=== PATIENT | female | born 1945 | race Caucasian/White ===

== ENCOUNTER → 2018-05-16 12:38 | Outpatient (CLI) | payer MEDICARE, OTHER, SELFPAY | PROVIDERS: PCP Family Medicine; Visit Provider Family Medicine | DX: M81.0 Age-related osteoporosis without current pathological fracture (principal); Z78.0 Asymptomatic menopausal state; Z87.891 Personal history of nicotine dependence; Z82.62 Family history of osteoporosis | CPT/HCPCS: 77080 ==

== ENCOUNTER → 2018-05-23 08:30 | Outpatient (CLI) | payer MEDICARE, OTHER, SELFPAY ==
[2018-05-23 09:43] LABS: Add Manual Diff / Slide Review NO; Basophils Percent Auto 1.1 % (0-2); Eosinophils Percent Auto 2.1 % (2-4); Hemoglobin 14.5 g/dL (12.0-16.0); Lymphocytes Percent Auto 30.3 % (25-40); Mean Corpuscular HGB Conc 33.6 % (30-36); Mean Corpuscular Hemoglobin 32.5 PG (26-34); Mean Corpuscular Volume 96.5 fL (80-100); Monocytes Percent Auto 6.7 % (3-14); Neutrophils Absolute Auto 3200 /uL (3000-5900); Neutrophils Percent Auto 59.8 % (50-75); Platelet Count 258 X10^3/uL (150-400); Red Blood Cell Count 4.45 X10^6/uL (4.0-5.2); Red Cell Distribution Width 12.8 % (11.6-14.8); White Blood Cell Count 5.4 X10^3/uL (4.5-11.0)
[2018-05-23 10:11] LABS: Erythrocyte Sedimentation Rate 11 MM/HR (0-20)
[2018-05-23 10:17] LABS: Uric Acid 4.1 mg/dL (2.5-6.2)
[2018-05-23 10:39] LABS: Rheumatoid Factor < 8.6 IU/mL (<12.0)
[2018-05-29 17:29] LABS: ANA Screen NEGATIVE (Negative); DNA Antibody Crithidia IFA NEGATIVE (Negative); Rheumatoid Factor <14 IU/mL; Sjogren Antiboday SS-A <1.0 NEG AI (<1.0 NEGATIVE); Sjogren Antiboday SS-B <1.0 NEG AI (<1.0 NEGATIVE); Sm Antibody <1.0 NEG AI (<1.0 NEGATIVE); Sm/RNP Antibody <1.0 NEG AI (<1.0 NEGATIVE)
== END ==
PROVIDERS: PCP Family Medicine; Visit Provider Family Medicine
DX: M19.90 Unspecified osteoarthritis, unspecified site (principal); M85.80 Other specified disorders of bone density and structure, unspecified site
CPT/HCPCS: 36415; 84550; 85025; 85651; 86038; 86430

== ENCOUNTER → 2019-02-17 09:31 | Outpatient (CLI) | payer MEDICARE, OTHER, SELFPAY ==
[2019-02-17 11:29] LABS: Alanine Aminotransferase 27 IU/L (9-52); Albumin 4.7 g/dL (3.5-5.0); Albumin Globulin Ratio 1.5 (1.0-2.8); Alkaline Phosphatase 70 U/L (38-126); Aspartate Aminotransferase 31 IU/L (14-36); Bilirubin Total 0.6 mg/dL (0.2-1.3); Blood Urea Nitrogen 18 mg/dL (7-17); Calcium 9.5 mg/dL (8.4-10.2); Carbon Dioxide 27 mmol/L (22-32); Chloride 103 mmol/L (98-107); Estimated Glomerular Filt Rate > 60.0 mL/min (>60); Globulin 3.2 g/dL (1.7-4.1); Glucose 102 mg/dL (80-110); HEMOLYSIS < 15 (0-50); Potassium 4.7 mmol/L (3.4-5.1); Sodium 140 mmol/L (137-145); Total Protein 7.9 g/dL (6.3-8.2)
[2019-02-17 11:46] LABS: Rheumatoid Factor < 8.6 IU/mL (<12.0)
[2019-02-17 12:01] LABS: TSH w/ Reflex to FT4 2.48 uIU/mL (0.47-4.68)
== END ==
PROVIDERS: PCP Family Medicine; Visit Provider Student in an Organized Health Care Education/Training Program
DX: M81.0 Age-related osteoporosis without current pathological fracture (principal); E55.9 Vitamin D deficiency, unspecified; M25.449 Effusion, unspecified hand; Z13.29 Encounter for screening for other suspected endocrine disorder
CPT/HCPCS: 36415; 80053; 82306; 84443; 86430

== ENCOUNTER → 2019-03-13 09:42 | Outpatient (CLI) | payer MEDICARE, OTHER, SELFPAY | PROVIDERS: PCP Family Medicine; Visit Provider Student in an Organized Health Care Education/Training Program | DX: M81.0 Age-related osteoporosis without current pathological fracture (principal) | CPT/HCPCS: 36415; 82310 ==

== ENCOUNTER → 2019-06-01 10:21 | Outpatient (CLI) | payer MEDICARE, OTHER, SELFPAY ==
[2019-06-01 11:05] LABS: Add Manual Diff / Slide Review NO; Basophils Absolute Auto 0 /uL (0-100); Basophils Percent Auto 1.1 % (0-2); Eosinophils Absolute Auto 100 /uL (0-450); Eosinophils Percent Auto 2.3 % (2-4); Hematocrit 43.6 % (36-46); Hemoglobin 15.2 g/dL (12.0-16.0); Lymphocytes Absolute Auto 1000 /uL (1100-4500); Lymphocytes Percent Auto 24.8 % (25-40); Mean Corpuscular HGB Conc 34.8 % (30-36); Mean Corpuscular Hemoglobin 33.1 PG (26-34); Mean Corpuscular Volume 94.9 fL (80-100); Monocytes Absolute Auto 300 /uL (0-900); Monocytes Percent Auto 7.4 % (3-14); Neutrophils Absolute Auto 2600 /uL (1500-7000); Neutrophils Percent Auto 64.4 % (50-75); Platelet Count 263 X10^3/uL (150-400); Red Cell Distribution Width 12.8 % (11.6-14.8); White Blood Cell Count 4.1 X10^3/uL (4.5-11.0)
[2019-06-01 11:18] LABS: Appearance Urine UA CLEAR; Bilirubin Urine UA NEGATIVE (NEGATIVE); Color Urine UA YELLOW; Glucose Urine UA NEGATIVE (Negative); Ketones Urine UA NEGATIVE (NEGATIVE); Leukocyte Esterase Urine UA NEGATIVE (NEGATIVE); Nitrite Urine UA NEGATIVE (Negative); Occult Blood Urine UA NEGATIVE (Negative); Protein Urine UA NEGATIVE (Negative); Urobilinogen Urine UA 0.2 E.U./dL (0.2); pH Urine UA 6.5 (4.5-8.0)
[2019-06-01 11:43] LABS: Alanine Aminotransferase 30 IU/L (9-52); Albumin 4.7 g/dL (3.5-5.0); Albumin Globulin Ratio 1.6 (1.0-2.8); Alkaline Phosphatase 54 U/L (38-126); Aspartate Aminotransferase 30 IU/L (14-36); BUN Creatinine Ratio 23.3 (6-22); Bilirubin Total 0.7 mg/dL (0.2-1.3); Blood Urea Nitrogen 21 mg/dL (7-17); Calcium 9.4 mg/dL (8.4-10.2); Carbon Dioxide 24 mmol/L (22-32); Chloride 106 mmol/L (98-107); Cholesterol 181 mg/dL (140-199); Estimated Glomerular Filt Rate > 60.0 mL/min (>60); Glucose 103 mg/dL (80-110); HDL Cholesterol 66 mg/dL (40-60); HEMOLYSIS < 15 (0-50); LDL Cholesterol Calculated 100 mg/dL (<100); Potassium 4.1 mmol/L (3.4-5.1); Sodium 141 mmol/L (137-145); Total Protein 7.7 g/dL (6.3-8.2); Triglycerides 74 mg/dL (35-150)
[2019-06-01 12:04] LABS: Thyroid Stimulating Hormone 2.66 uIU/mL (0.47-4.68)
== END ==
PROVIDERS: PCP Family Medicine; Visit Provider Family Medicine
DX: K21.9 Gastro-esophageal reflux disease without esophagitis (principal); Z51.81 Encounter for therapeutic drug level monitoring
CPT/HCPCS: 36415; 80053; 80061; 81003; 84443; 85025

== ENCOUNTER → 2019-08-17 08:08 | Outpatient (CLI) | payer MEDICARE, OTHER, SELFPAY ==
[2019-08-17 09:37] LABS: Add Manual Diff / Slide Review NO; Basophils Absolute Auto 0 /uL (0-100); Basophils Percent Auto 1.2 % (0-2); Eosinophils Absolute Auto 100 /uL (0-450); Eosinophils Percent Auto 2.7 % (2-4); Hematocrit 44.1 % (36-46); Hemoglobin 14.9 g/dL (12.0-16.0); Lymphocytes Absolute Auto 1400 /uL (1100-4500); Lymphocytes Percent Auto 34.8 % (25-40); Mean Corpuscular HGB Conc 33.7 % (30-36); Mean Corpuscular Hemoglobin 32.9 PG (26-34); Mean Corpuscular Volume 97.5 fL (80-100); Monocytes Absolute Auto 300 /uL (0-900); Monocytes Percent Auto 7.6 % (3-14); Neutrophils Absolute Auto 2100 /uL (1500-7000); Neutrophils Percent Auto 53.7 % (50-75); Platelet Count 258 X10^3/uL (150-400); Red Blood Cell Count 4.53 X10^6/uL (4.0-5.2); Red Cell Distribution Width 13.8 % (11.6-14.8)
[2019-08-17 09:47] LABS: Alanine Aminotransferase 21 IU/L (9-52); Albumin 4.2 g/dL (3.5-5.0); Albumin Globulin Ratio 1.3 (1.0-2.8); Alkaline Phosphatase 50 U/L (38-126); Aspartate Aminotransferase 34 IU/L (14-36); BUN Creatinine Ratio 22.5 (6-22); Bilirubin Total 0.6 mg/dL (0.2-1.3); Blood Urea Nitrogen 18 mg/dL (7-17); Calcium 9.4 mg/dL (8.4-10.2); Carbon Dioxide 30 mmol/L (22-32); Chloride 103 mmol/L (98-107); Cholesterol 190 mg/dL (140-199); Estimated Glomerular Filt Rate > 60.0 mL/min (>60); Globulin 3.3 g/dL (1.7-4.1); Glucose 101 mg/dL (80-110); HDL Cholesterol 57 mg/dL (40-60); HEMOLYSIS < 15 (0-50); LDL Cholesterol Calculated 114 mg/dL (<100); Potassium 4.5 mmol/L (3.4-5.1); Sodium 140 mmol/L (137-145); Total Protein 7.5 g/dL (6.3-8.2); Triglycerides 95 mg/dL (35-150)
[2019-08-17 10:03] LABS: Vitamin D 25 Hydroxy (D3) 61.4 ng/mL (30.0-100.0)
[2019-08-17 10:43] LABS: Thyroid Stimulating Hormone 2.82 uIU/mL (0.47-4.68)
[2019-08-17 11:12] LABS: Appearance Urine UA CLEAR; Bilirubin Urine UA NEGATIVE (NEGATIVE); Color Urine UA YELLOW; Glucose Urine UA NEGATIVE (Negative); Ketones Urine UA NEGATIVE (NEGATIVE); Leukocyte Esterase Urine UA NEGATIVE (NEGATIVE); Nitrite Urine UA NEGATIVE (Negative); Occult Blood Urine UA NEGATIVE (Negative); Protein Urine UA NEGATIVE (Negative); Urobilinogen Urine UA 0.2 E.U./dL (0.2)
== END ==
PROVIDERS: Family Provider Family Medicine; PCP Family Medicine; Visit Provider Student in an Organized Health Care Education/Training Program
DX: M81.0 Age-related osteoporosis without current pathological fracture (principal); E78.5 Hyperlipidemia, unspecified; K21.9 Gastro-esophageal reflux disease without esophagitis; Z51.81 Encounter for therapeutic drug level monitoring
CPT/HCPCS: 36415; 80053; 80061; 81003; 82306; 84443; 85025

== ENCOUNTER → 2019-09-22 08:50 | Outpatient (CLI) | payer MEDICARE, OTHER, SELFPAY ==
[2019-09-22 10:12] LABS: Calcium 9.5 mg/dL (8.4-10.2)
== END ==
PROVIDERS: PCP Family Medicine; Visit Provider Student in an Organized Health Care Education/Training Program
DX: M81.0 Age-related osteoporosis without current pathological fracture (principal)
CPT/HCPCS: 36415; 82310

== ENCOUNTER → 2019-10-26 15:11 | Outpatient (CLI) | payer MEDICARE, OTHER, SELFPAY ==
--- NOTE | 2019-10-26 15:13 | DI.MG.S_ITS ---
BILATERAL DIGITAL SCREENING MAMMOGRAM 3D/2D WITH CAD: 10/26/2019 CLINICAL: Routine screening. Comparison is made to exams dated: 03/27/2018 mammogram, 10/30/2016 mammogram, 10/03/2015 mammogram, 09/01/2014 mammogram, and 04/23/2013 mammogram - [facility]. There are scattered fibroglandular elements in both breasts. Current study was also evaluated with a Computer Aided Detection (CAD) system. No significant masses, calcifications, or other findings are seen in either breast. There has been no significant interval change. IMPRESSION: NEGATIVE There is no mammographic evidence of malignancy. A 1 year screening mammogram is recommended. This exam was interpreted at Station ID: [id number]. NOTE: For mammograms, a report in lay terms will be sent to the patient. Approximately 15% of breast malignancies will not be visualized mammographically. In the management of a palpable breast mass, a negative mammogram must not discourage biopsy of a clinically suspicious lesion. Electronically Signed By: Armen naylor/polina:10/26/2019 16:32:55 copy to: Ana Wallis letter sent: Normal Exam ACR BI-RADS Category 1: Negative [id number]
== END ==
PROVIDERS: PCP Family Medicine; Visit Provider Family Medicine
DX: Z12.31 Encounter for screening mammogram for malignant neoplasm of breast (principal)
CPT/HCPCS: 77063; 77067

== ENCOUNTER 2019-12-03 13:48 | Emergency (ER) | payer MEDICARE, OTHER, SELFPAY ==
[2019-12-03 13:49] VITALS: BP 140/75; PULSE 84; RESP 15; TEMP 36.1; O2SAT 96; BMI 26.9
--- NOTE | 2019-12-03 14:27 | DI.RAD.S_ITS ---
PROCEDURE: XR ACUTE ABDOMEN SERIES INDICATIONS: constipated,bloating TECHNIQUE: One view chest and two views of the abdomen were acquired. COMPARISON: [facility], CT, ABDOMEN WITH CONTRAST, 12/10/2017, 10:42. FINDINGS: Surgical changes and devices: Clips within the right upper quadrant are suggestive of a previous cholecystectomy. Chest: Lungs are clear. Heart size is normal. No pleural effusions. No pneumoperitoneum. Abdomen: A few borderline distended air-filled small bowel loops within the upper abdomen are identified, particularly seen within the left upper quadrant but did not measure the greater than 3 cm in diameter. A few scattered air-fluid levels are present. Moderate residual stool seen within the proximal colon. No suspicious calcifications. Visualized solid organ contours appear normal. Bones: No suspicious bony lesions. IMPRESSION: 1. Probable small bowel ileus. If the patient's symptoms persist, please consider an abdominal and pelvic CT with oral and intravenous contrast to exclude the possibility of a developing small bowel obstruction. 2. Possible constipation. 3. No acute cardiopulmonary process. Dictated by: Frank Martínez M.D. on 12/03/2019 at 14:17 Approved by: Frank Martínez M.D. on 12/03/2019 at 14:18
--- NOTE | 2019-12-03 15:49 | ED_ITS ---
HPI - Abdominal Pain <Yas Peña PA-C - Last Filed: 12/03/19 19:28> General Chief Complaint: Abdominal Pain Stated Complaint: constipation,bloated Time Seen by Provider: 12/03/19 15:41 Source: patient Mode of arrival: Ambulatory Limitations: no limitations History of Present Illness HPI narrative: This 73-year-old female comes to ED secondary to 3 day history of progressive abdominal pain with bloating and gas. She states that she has a history of reflux, had some heartburn Silva morning which resolved with Pepto- Bismol. Silva night however she started to feel bloated with a lot of bowel gas. She states there is some constant pain in her lower abdomen throughout that she can also feel in her back at times, especially when gas moves, then pain increases. She has not had any localized pain. Last normal bowel movement was Saturday, none since then. She states that there don't seem to be exacerbating or alleviating features for pain aside from movement of the gas. She has not noted any change with food, had some yogurt today and ate yesterday. She denies any urinary symptoms. She denies any nausea or vomiting. She denies any fever, chills, or sweats. She denies any chest pain or dyspnea. She denies any new pain or swelling in her extremities or other symptoms on systems review except starting to get a cold sore. She has not had any recent surgery, immobility, or medication change. No history of bowel issues. Related Data Home Medications Medication Instructions Recorded Confirmed fluticasone propionate 50 1 spray NASAL DAILY PRN 06/09/18 12/03/19 mcg/actuation nasal spray,suspension denosumab 60 mg/mL subcutaneous 60 mg SUBCUT [id number] 06/01/19 12/03/19 syringe Calcium 500/ D 1000 1 tab PO DAILY 12/03/19 12/03/19 Women's Multivitamin 1 tab PO DAILY 12/03/19 12/03/19 cyclobenzaprine 10 mg PO TIDP PRN 12/03/19 12/03/19 gabapentin [Neurontin] 600 mg PO QAM 12/03/19 12/03/19 ibuprofen 200 mg PO Q6H PRN 12/03/19 12/03/19 Previous Rx's Medication Instructions Recorded pravastatin 40 mg tablet 40 mg PO BEDTIME #90 tab 06/09/19 ranitidine HCl 150 mg tablet 150 mg PO DAILY #90 tab 06/19/19 ciprofloxacin HCl 500 mg PO Q12H #20 tab 12/03/19 metronidazole [Flagyl] 500 mg PO Q8H #30 tab 12/03/19 Allergies Allergy/AdvReac Type Severity Reaction Status Date / Time alendronate sodium Allergy Unknown Verified 12/03/19 13:49 [From FOSAMAX] iodine [IODINE] Allergy Unknown Verified 12/03/19 13:49 Sulfa (Sulfonamide Allergy Unknown Verified 12/03/19 16:11 Antibiotics) Review of Systems <Yas Peña PA-C - Last Filed: 12/03/19 19:28> Review of Systems ROS Unobtainable: All systems reviewed & are unremarkable except as noted in HPI and below Patient History <Yas Peña PA-C - Last Filed: 12/03/19 19:28> Medical History Allergy (Chronic 1989) Hearing loss (Chronic 1958) Hyperlipidemia (Chronic ~2011) Low back pain (Chronic 2017) Renal cyst (Chronic Unknown) Rosacea (Chronic 2012) Sciatica (Chronic Unknown) Shoulder pain (Resolved 1987) Urinary incontinence (Chronic 2016) Surgical History Status post cholecystectomy Family History (Updated 01/23/18 @ 00:00 by Conversion Provider) Child Mental health problem Father Mental health problem Social History Smoking Status: Former smoker alcohol intake: never Smoking Status: Former smoker alcohol intake frequency: holidays/special occasions only Substance Use Type: does not use Exam <Yas Peña PA-C - Last Filed: 12/03/19 19:28> Narrative Exam Narrative: GENERAL APPEARANCE: Patient sitting comfortably, in no distress. HEENT: PERRL, EOMI, no scleral icterus, normal oropharynx NECK: Supple LUNGS: Clear to auscultation bilaterally. HEART: Rate and rhythm regular, normal S1 and S2, no S3 or S4. ABDOMEN: Soft, nondistended, bowel sounds present x 4 quadrants, slightly hypoactive, no masses palpable, no hepatosplenomegaly. Mild generalized lower quadrant tenderness without guarding or rebound, no CVAT EXTREMITIES: No edema, no cyanosis DERMATOLOGIC: No jaundice or exanthem NEUROLOGIC: Alert and oriented with normal speech and coordination Initial Vital Signs Initial Vital Signs: Vital Signs Temperature 96.9 F L 12/03/19 13:49 Pulse Rate 84 12/03/19 13:49 Respiratory Rate 15 12/03/19 13:49 Blood Pressure 140/75 12/03/19 13:49 Pulse Oximetry 96 12/03/19 13:49 <Ja Gleason DO - Last Filed: 12/03/19 19:29> Initial Vital Signs Initial Vital Signs: Vital Signs Temperature 96.9 F L 12/03/19 13:49 Pulse Rate 84 12/03/19 13:49 Respiratory Rate 15 12/03/19 13:49 Blood Pressure 140/75 12/03/19 13:49 Pulse Oximetry 96 12/03/19 13:49 Course <Yas Peña PA-C - Last Filed: 12/03/19 19:28> Course Additional Information: Reviewed findings with patient and she feels comfortable with outpatient treatment. She is afebrile, has not had any difficulty tolerating p.o.. She will start antibiotics, advised on treatment for constipation as well as need for follow-up with PCP and when better to discuss follow-up colonoscopy with surgery. She agrees to return if any acutely worsening symptoms. Reviewed findings with Dr. Moise who agrees with plan Orders Ordered: ED Orders 12/03/19 14:27 XR acute abdomen series Stat 12/03/19 16:06 CT abdomen pelvis w con Stat 12/03/19 16:20 Complete Blood Count AUTO DIFF Stat Comprehensive Metabolic Panel Stat Lipase Stat Discontinued Medications Diphenhydramine HCl (Benadryl) 50 mg IV NOW ONE Stop: 12/03/19 16:05 Last Admin: 12/03/19 16:37 Dose: 50 mg Documented by: TEREZA Sodium Chloride (Normal Saline 0.9%) 1,000 mls @ 1,000 mls/hr IV BOLUS ONE Stop: 12/03/19 17:03 Last Infusion: 12/03/19 17:45 Dose: 0 mls/hr Documented by: Admin: 12/03/19 16:37 Dose: 1,000 mls/hr Documented by: TEREZA Vital Signs Vital signs: Vital Signs - 8 hr 12/03/19 13:49 12/03/19 17:03 12/03/19 18:48 Temperature 96.9 F L Pulse Rate 84 72 77 Respiratory Rate 15 12 16 Blood Pressure 140/75 140/61 Blood Pressure [Left Arm] 117/64 Pulse Oximetry 96 98 <Ja Gleason DO - Last Filed: 12/03/19 19:29> Orders Ordered: ED Orders 12/03/19 14:27 XR acute abdomen series Stat 12/03/19 16:06 CT abdomen pelvis w con Stat 12/03/19 16:20 Complete Blood Count AUTO DIFF Stat Comprehensive Metabolic Panel Stat Lipase Stat Discontinued Medications Diphenhydramine HCl (Benadryl) 50 mg IV NOW ONE Stop: 12/03/19 16:05 Last Admin: 12/03/19 16:37 Dose: 50 mg Documented by: TEREZA Sodium Chloride (Normal Saline 0.9%) 1,000 mls @ 1,000 mls/hr IV BOLUS ONE Stop: 12/03/19 17:03 Last Infusion: 12/03/19 17:45 Dose: 0 mls/hr Documented by: Admin: 12/03/19 16:37 Dose: 1,000 mls/hr Documented by: TEREZA Vital Signs Vital signs: Vital Signs - 8 hr 12/03/19 13:49 12/03/19 17:03 12/03/19 18:48 Temperature 96.9 F L Pulse Rate 84 72 77 Respiratory Rate 15 12 16 Blood Pressure 140/75 140/61 Blood Pressure [Left Arm] 117/64 Pulse Oximetry 96 98 MDM - Abdominal Pain <Yas Peña PA-C - Last Filed: 12/03/19 19:28> Lab Data Result diagrams: 12/03/19 16:20 12/03/19 16:20 Labs: Lab Results 12/03/19 12/03/19 Range/Units 16:20 16:20 WBC 9.6 (4.5-11.0) X10^3/uL RBC 4.32 (4.0-5.2) X10^6/uL Hgb 14.4 (12.0-16.0) g/dL Hct 41.1 (36-46) % MCV 95.1 (80-100) fL MCH 33.3 (26-34) PG MCHC 35.1 (30-36) % RDW 12.4 (11.6-14.8) % Plt Count 242 (150-400) X10^3/uL Neut % (Auto) 80.8 H (50-75) % Lymph % (Auto) 11.7 L (25-40) % [place] % (Auto) 7.0 (3-14) % Eos % (Auto) 0.2 L (2-4) % Baso % (Auto) 0.3 (0-2) % Neut # (Auto) 7800 H (3699-5179) /uL Lymph # (Auto) 1100 (4587-9849) /uL [place] # (Auto) 700 (0-900) /uL Eos # (Auto) 0 (0-450) /uL Baso # (Auto) 0 (0-100) /uL Sodium 137 (137-145) mmol/L Potassium 3.8 (3.4-5.1) mmol/L Chloride 103 (98-107) mmol/L Carbon Dioxide 27 (22-32) mmol/L BUN 16 (7-17) mg/dL Creatinine 0.80 (0.52-1.04) mg/dL Estimated GFR > 60.0 (>60) mL/min BUN/Creatinine Ratio 20.0 (6-22) Glucose 98 (80-110) mg/dL Calcium 9.3 (8.4-10.2) mg/dL Total Bilirubin 0.7 (0.2-1.3) mg/dL AST 70 H (14-36) IU/L ALT 61 H (<35) IU/L Alkaline Phosphatase 80 (38-126) U/L Total Protein 7.5 (6.3-8.2) g/dL Albumin 4.5 (3.5-5.0) g/dL Globulin 3.0 (1.7-4.1) g/dL Albumin/Globulin Ratio 1.5 (1.0-2.8) Lipase 51 (23-300) U/L Point of care testing: Urine Dip Bedside Urine Glucose Negative Bedside Urine Bilirubin - Negative Bedside Urine Ketone +/- 5 Urine Specific Ages [place] 1.015 Bedside Urine Occult Blood - Negative Bedside Urine pH 7.0 Bedside Urine Protein - Negative Bedside Urine Urobilinogen - Negative Bedside Urine Nitrite - Negative Bedside Urine Leukocytes - Negative Esterase Imaging Data Abdominal x-ray: Radiologist's Impression: Chart Viewer Diagnostics DATE TYPE STATUS AUTHOR Hx 12/03/19 14:27 Frank Martínez 10/26/19 15:13 Call,Armen 03/27/18 00:00 MynorMiguel ÁngelRolandoChantel Apodaca, F1945 [facility] R12 160.02cm 68.946kg BMI: 26.9kg/m? Abdominal Pain Search Chart No Data to Display ONSET Today 13:49 Chantel Hsu F 1945 [place] [address] XRay Report Signed Patient: Chantel Hsu RMR#: [id number] : 1945cct:[id number] Age/Sex: 73 / FDate of Service: 12/03/19 Loc: ED Accession Number: [id number] Procedure: XR acute abdomen series Ordering Provider: Ja Gleason D.O. PROCEDURE: XR ACUTE ABDOMEN SERIES INDICATIONS: constipated,bloating TECHNIQUE: One view chest and two views of the abdomen were acquired. COMPARISON: [facility], CT, ABDOMEN WITH CONTRAST, 12/10/2017, 10:42. FINDINGS: Surgical changes and devices: Clips within the right upper quadrant are suggestive of a previous cholecystectomy. Chest: Lungs are clear. Heart size is normal. No pleural effusions. No pneumoperitoneum. Abdomen: A few borderline distended air-filled small bowel loops within the upper abdomen are identified, particularly seen within the left upper quadrant but did not measure the greater than 3 cm in diameter. A few scattered air-fluid levels are present. Moderate residual stool seen within the proximal colon. No suspicious calcifications. V isualized solid organ contours appear normal. Bones: No suspicious bony lesions. IMPRESSION: 1. Probable small bowel ileus. If the patient's symptoms persist, please consider an abdominal and pelvic CT with oral and intravenous contrast to exclude the possibility of a developing small bowel obstruction. 2. Possible constipation. 3. No acute cardiopulmonary process. Dictated by: Frank Martínez M.D. on 12/03/2019 at 14:17 Approved by: Frank Martínez M.D. on 12/03/2019 at 14:18 <Ja Gleason, DO - Last Filed: 12/03/19 19:29> Lab Data Labs: Lab Results 12/03/19 12/03/19 Range/Units 16:20 16:20 WBC 9.6 (4.5-11.0) X10^3/uL RBC 4.32 (4.0-5.2) X10^6/uL Hgb 14.4 (12.0-16.0) g/dL Hct 41.1 (36-46) % MCV 95.1 (80-100) fL MCH 33.3 (26-34) PG MCHC 35.1 (30-36) % RDW 12.4 (11.6-14.8) % Plt Count 242 (150-400) X10^3/uL Neut % (Auto) 80.8 H (50-75) % Lymph % (Auto) 11.7 L (25-40) % [place] % (Auto) 7.0 (3-14) % Eos % (Auto) 0.2 L (2-4) % Baso % (Auto) 0.3 (0-2) % Neut # (Auto) 7800 H (1844-8184) /uL Lymph # (Auto) 1100 (2759-5503) /uL [place] # (Auto) 700 (0-900) /uL Eos # (Auto) 0 (0-450) /uL Baso # (Auto) 0 (0-100) /uL Sodium 137 (137-145) mmol/L Potassium 3.8 (3.4-5.1) mmol/L Chloride 103 (98-107) mmol/L Carbon Dioxide 27 (22-32) mmol/L BUN 16 (7-17) mg/dL Creatinine 0.80 (0.52-1.04) mg/dL Estimated GFR > 60.0 (>60) mL/min BUN/Creatinine Ratio 20.0 (6-22) Glucose 98 (80-110) mg/dL Calcium 9.3 (8.4-10.2) mg/dL Total Bilirubin 0.7 (0.2-1.3) mg/dL AST 70 H (14-36) IU/L ALT 61 H (<35) IU/L Alkaline Phosphatase 80 (38-126) U/L Total Protein 7.5 (6.3-8.2) g/dL Albumin 4.5 (3.5-5.0) g/dL Globulin 3.0 (1.7-4.1) g/dL Albumin/Globulin Ratio 1.5 (1.0-2.8) Lipase 51 (23-300) U/L Point of care testing: Urine Dip Bedside Urine Glucose Negative Bedside Urine Bilirubin - Negative Bedside Urine Ketone +/- 5 Urine Specific Ages [place] 1.015 Bedside Urine Occult Blood - Negative Bedside Urine pH 7.0 Bedside Urine Protein - Negative Bedside Urine Urobilinogen - Negative Bedside Urine Nitrite - Negative Bedside Urine Leukocytes - Negative Esterase Discharge Plan Departure Patient Disposition: Home Clinical Impression: Diverticulitis Constipation Qualifiers: Constipation type: other constipation type Qualified Code(s): K59.09 - Other constipation Discharge Date/Time: 12/03/19 18:48 Instructions: DI for Diverticulitis, DI for Constipation Activity Restrictions/Additional Instructions: Please start the antibiotics when you pick them up tonight. Please avoid using any alcohol products at all while you are on the metronidazole. Use ibuprofen every 8 hours for pain as well as Tylenol as needed. Drink plenty of clear flui ds for the next couple of days. You can have broth and Jell-O. If you are feeling better, you can try applesauce, white rice, white toast, plain baked potato without the skin, etcetera, and slowly advance your diet in a few days if you are feeling better. Please follow-up with your PCP for recheck in a few days (call tomorrow for appointment), and as we talked about, you should also see the local surgeons to discuss repeat colonoscopy when you are better. Please call their office as well tomorrow and let them know you were seen in the emergency room and advised to follow up there in a week o two. I have given you Dr. Storey's name since he is labor relations worker [facility] but you can see one of the other surgeons as well. For the constipation, please mix 4-6 oz each of prune juice with a dose of Miralax and a dose of Mylanta (both over the counter). Take this daily as needed until resolved. You can add Senekot or Ducolax in addition to these as needed. As we talked about, you should return if you have any acutely worsening symptoms, i.e. worsening pain, new fever, vomiting, etcetera as in that case you may need further testing and treatment in the hospital. Prescriptions: New ciprofloxacin HCl 500 mg tablet 500 mg PO Q12H Qty: 20 RF: 0 metronidazole [Flagyl] 500 mg tablet 500 mg PO Q8H Qty: 30 RF: 0 No Action fluticasone propionate [Flonase Allergy Relief] 50 mcg/actuation spray,suspension 1 spray NASAL DAILY PRN (Reason: Allergy Symptoms) RF: 0 pravastatin 40 mg tablet 40 mg PO BEDTIME Qty: 90 RF: 3 Prolia 60 mg/mL syringe 60 mg SUBCUT [id number] RF: 0 ranitidine HCl 150 mg tablet 150 mg PO DAILY Qty: 90 RF: 3 cyclobenzaprine 10 MG tablet 10 mg PO TIDP PRN (Reason: Spasms) RF: 0 gabapentin [Neurontin] 300 mg capsule 600 mg PO QAM RF: 0 ibuprofen 200 mg Tablet 200 mg PO Q6H PRN (Reason: pain) RF: 0 Calcium 500/ D 1000 1 tab PO DAILY RF: 0 Women's Multivitamin 1 tab PO DAILY RF: 0 Referrals: Roman Storey MD [Physician] - Ana Wallis DO [Primary Care Provider] -
--- NOTE | 2019-12-03 16:06 | DI.CT.S_ITS ---
PROCEDURE: CT ABDOMEN PELVIS W CON INDICATIONS: constipation, pain, possible ileus on XR TECHNIQUE: After the administration of intravenous contrast, 5 mm thick sections acquired from the diaphragm to the symphysis. 5 mm coronal and sagittal reformats were acquired. For radiation dose reduction, the following was used: automated exposure control, adjustment of mA and/or kV according to patient size. COMPARISON: [facility], CT, ABDOMEN WITH CONTRAST, 12/10/2017, 10:42. [facility], CT, KIDNEY/ URETER/BLADDER, 10/24/2010, 14:07. [facility], CR, XR ACUTE ABDOMEN SERIES, 12/03/2019, 14:23. FINDINGS: Image quality: Excellent. ABDOMEN: Lung bases: Lung bases are clear. Heart size is normal. Solid organs: Liver is normal in size and enhancement. Gallbladder is surgically absent. There is mild intrahepatic biliary dilation. Common bile duct is prominent measuring 9 mm.. Pancreas enhances normally. Spleen is normal in size and enhancement. No adrenal nodules. Kidneys demonstrate normal size and enhancement, without hydronephrosis. There are multiple simple appearing cyst in the left kidney; the largest one measures 5 cm in the superior pole. The slightly complex cyst is seen in the superior pole of the right kidney with wall nodularity and partial wall calcification measuring 1.5 cm. It is unchanged from 12/10/2017. Peritoneum and bowel: There are multiple colonic diverticula. There is short segment of thickening of the sigmoid colon adjacent to a diverticulum, suspicious for acute diverticulitis. A large amount of stool in colon. No free air. Trace amount of free fluid in pelvis. Nodes and vessels: No retroperitoneal or mesenteric adenopathy by size criteria. Aorta and inferior vena cava are normal in size. Miscellaneous: No ventral hernias. PELVIS: Genitourinary: Bladder wall thickness is normal. Uterus is normal. No adnexal mass or pathological free pelvic fluid. Miscellaneous: No inguinal hernias or adenopathy. Bones: No suspicious bony lesions. No vertebral body compression fractures. IMPRESSION: 1. Diverticulosis. There is short segmental thickening of sigmoid colon in association with a diverticulum, consistent with acute diverticulitis. A colonic mass could have a similar appearance. Recommend lower endoscopy for further evaluation after adequate treatment to exclude the possibility of a colonic mass. 2. A large amount of stool in colon. 3. Cholecystectomy. Mild intrahepatic and extrahepatic biliary dilation is most likely postsurgical. Please correlate with serum bilirubin. 4. A Bosniak category 2F cyst in the superior pole of the right kidney, unchanged compared to 12/10/2017. Dictated by: Vern Ryan M.D. on 12/03/2019 at 17:49 Approved by: Vern Ryan M.D. on 12/03/2019 at 18:05
[2019-12-03 16:25] LABS: Add Manual Diff / Slide Review NO; Basophils Absolute Auto 0 /uL (0-100); Basophils Percent Auto 0.3 % (0-2); Eosinophils Absolute Auto 0 /uL (0-450); Eosinophils Percent Auto 0.2 % (2-4); Hematocrit 41.1 % (36-46); Hemoglobin 14.4 g/dL (12.0-16.0); Lymphocytes Absolute Auto 1100 /uL (1100-4500); Lymphocytes Percent Auto 11.7 % (25-40); Mean Corpuscular HGB Conc 35.1 % (30-36); Mean Corpuscular Hemoglobin 33.3 PG (26-34); Mean Corpuscular Volume 95.1 fL (80-100); Monocytes Absolute Auto 700 /uL (0-900); Neutrophils Absolute Auto 7800 /uL (1500-7000); Neutrophils Percent Auto 80.8 % (50-75); Platelet Count 242 X10^3/uL (150-400); Red Blood Cell Count 4.32 X10^6/uL (4.0-5.2); Red Cell Distribution Width 12.4 % (11.6-14.8); White Blood Cell Count 9.6 X10^3/uL (4.5-11.0)
[2019-12-03] MEDS: diphenhydrAMINE 50 MG/ML VIAL IV (16:37)
[2019-12-03] MEDS: SODIUM CHLORIDE 0.9% 1,000 ML 1000 ML IV (16:37)
[2019-12-03 16:46] LABS: Alanine Aminotransferase 61 IU/L (<35); Albumin 4.5 g/dL (3.5-5.0); Albumin Globulin Ratio 1.5 (1.0-2.8); Alkaline Phosphatase 80 U/L (38-126); Aspartate Aminotransferase 70 IU/L (14-36); Bilirubin Total 0.7 mg/dL (0.2-1.3); Blood Urea Nitrogen 16 mg/dL (7-17); Calcium 9.3 mg/dL (8.4-10.2); Carbon Dioxide 27 mmol/L (22-32); Chloride 103 mmol/L (98-107); Estimated Glomerular Filt Rate > 60.0 mL/min (>60); Glucose 98 mg/dL (80-110); HEMOLYSIS < 15 (0-50); Lipase 51 U/L (23-300); Potassium 3.8 mmol/L (3.4-5.1); Sodium 137 mmol/L (137-145); Total Protein 7.5 g/dL (6.3-8.2)
[2019-12-03 17:03] VITALS: BP 117/64; PULSE 72; RESP 12; O2SAT 98
[2019-12-03 18:48] VITALS: BP 140/61; PULSE 77; RESP 16
== END 2019-12-03 18:48 | disposition home or self-care (01) ==
PROVIDERS: Emergency Provider Internal Medicine; PCP Family Medicine
DX: K57.92 Diverticulitis of intestine, part unspecified, without perforation or abscess without bleeding (principal); K59.09 Other constipation
CPT/HCPCS: 36415; 74022; 74177; 80053; 81003; 83690; 85025; 96361; 96374; 99284; J1200; Q9967

== ENCOUNTER → 2020-04-07 07:12 | Outpatient (CLI) | payer MEDICARE, OTHER, SELFPAY ==
[2020-04-07 08:07] LABS: Add Manual Diff / Slide Review NO; Basophils Absolute Auto 100 /uL (0-100); Basophils Percent Auto 1.2 % (0-2); Eosinophils Absolute Auto 200 /uL (0-450); Eosinophils Percent Auto 4.9 % (2-4); Hematocrit 42.4 % (36-46); Hemoglobin 14.4 g/dL (12.0-16.0); Lymphocytes Absolute Auto 1700 /uL (1100-4500); Lymphocytes Percent Auto 37.7 % (25-40); Mean Corpuscular Hemoglobin 32.9 PG (26-34); Mean Corpuscular Volume 96.6 fL (80-100); Monocytes Absolute Auto 400 /uL (0-900); Monocytes Percent Auto 8.5 % (3-14); Neutrophils Absolute Auto 2100 /uL (1500-7000); Neutrophils Percent Auto 47.7 % (50-75); Platelet Count 266 X10^3/uL (150-400); Red Blood Cell Count 4.39 X10^6/uL (4.0-5.2); Red Cell Distribution Width 12.8 % (11.6-14.8); White Blood Cell Count 4.5 X10^3/uL (4.5-11.0)
[2020-04-07 08:29] LABS: BUN Creatinine Ratio 24.7 (6-22); Blood Urea Nitrogen 20 mg/dL (7-17); Calcium 9.4 mg/dL (8.4-10.2); Carbon Dioxide 26 mmol/L (22-32); Chloride 105 mmol/L (98-107); Estimated Glomerular Filt Rate > 60.0 mL/min (>60); Glucose 104 mg/dL (80-110); HEMOLYSIS < 15 (0-50); Potassium 4.1 mmol/L (3.4-5.1); Sodium 139 mmol/L (137-145)
[2020-04-07 08:39] LABS: Cholesterol 179 mg/dL (140-199); HDL Cholesterol 66 mg/dL (40-60); LDL Cholesterol Calculated 99 mg/dL (<100); Triglycerides 72 mg/dL (35-150)
[2020-04-07 08:47] LABS: Vitamin D 25 Hydroxy (D3) 55.1 ng/mL (30.0-100.0)
[2020-04-07 09:00] LABS: Thyroid Stimulating Hormone 2.85 uIU/mL (0.47-4.68)
== END ==
PROVIDERS: Family Medicine; PCP Family Medicine; Referring Provider Student in an Organized Health Care Education/Training Program; Visit Provider Student in an Organized Health Care Education/Training Program
DX: E55.9 Vitamin D deficiency, unspecified (principal); M81.0 Age-related osteoporosis without current pathological fracture; E78.5 Hyperlipidemia, unspecified
CPT/HCPCS: 36415; 80048; 80061; 82306; 84443; 85025

== ENCOUNTER → 2020-05-24 15:14 | Outpatient (CLI) | payer MEDICARE, OTHER, SELFPAY | PROVIDERS: PCP Family Medicine; Visit Provider Student in an Organized Health Care Education/Training Program | DX: M85.851 Other specified disorders of bone density and structure, right thigh (principal); Z78.0 Asymptomatic menopausal state; Z82.62 Family history of osteoporosis | CPT/HCPCS: 77080 ==

== ENCOUNTER 2020-07-21 15:23 | Emergency (ER) | payer MEDICARE, OTHER, SELFPAY ==
[2020-07-21 15:29] VITALS: BP 168/84; PULSE 79; RESP 15; TEMP 36.7; O2SAT 99
--- NOTE | 2020-07-21 16:35 | ED_ITS ---
HPI - Wound/Laceration <Virgen Henley, [employer] - Last Filed: 07/21/20 18:35> General Chief Complaint: Wound/Laceration Stated Complaint: bee sting yesterday, right foot stung Time Seen by Provider: 07/21/20 15:49 Source: patient Mode of arrival: Ambulatory Limitations: no limitations History of Present Illness HPI narrative: The patient is a 74-year-old female former smoker with history of GERD who presents with a chief complaint of a bee sting yesterday. She states that her little toe on her right foot was started yesterday while she was out for walk. She notes that it was very painful. She took ibuprofen and Benadryl last night prior to bed. Today she has slight extending redness from the toe sting site, so she came to the emergency department. She denies any chest pain or shortness of breath. She denies any fevers nausea vomiting or diarrhea. She tried ice once. She does not know when her previous tetanus shot was. Related Data Home Medications Medication Instructions Recorded Confirmed fluticasone propionate 50 1 spray NASAL DAILY PRN 06/09/18 07/25/20 mcg/actuation nasal spray,suspension denosumab 60 mg/mL subcutaneous 60 mg SUBCUT [id number] 06/01/19 07/25/20 syringe Calcium 500/ D 1000 1 tab PO DAILY 12/03/19 07/25/20 Women's Multivitamin 1 tab PO DAILY 12/03/19 07/25/20 cyclobenzaprine 10 mg PO TIDP PRN 12/03/19 07/25/20 ibuprofen 200 mg PO Q6H PRN 12/03/19 07/25/20 famotidine 10 mg tablet 10 mg PO DAILY 05/09/20 07/25/20 psyllium husk 3.4 gram/5.4 gram 1 tbsp PO DAILY 05/09/20 07/25/20 oral powder Previous Rx's Medication Instructions Recorded gabapentin 300 mg capsule 600 mg PO QAM #180 cap 05/09/20 pravastatin 40 mg tablet 40 mg PO BEDTIME #90 tab 05/09/20 Allergies Allergy/AdvReac Type Severity Reaction Status Date / Time omeprazole Allergy Mild Itching in Verified 07/25/20 14:43 feet alendronate sodium Allergy Unknown Verified 07/25/20 14:43 [From FOSAMAX] iodine [IODINE] Allergy Unknown Verified 07/25/20 14:43 Sulfa (Sulfonamide Allergy Unknown Verified 07/25/20 14:43 Antibiotics) Review of Systems <MICHAEL Snowden - Last Filed: 07/21/20 18:35> Review of Systems Narrative: GENERAL: Denies chills, fatigue, malaise, fever, sweats. HEENT: Denies sinus pain, ear pain, sore throat, difficulty swallowing, dizziness. RESPIRATORY: Denies dyspnea, cough, wheezing, hemoptysis, sputum. CARDIOVASCULAR: Denies chest pain, palpitations, orthopnea, edema, GASTROINTESTINAL: Denies nausea, vomiting, abdominal pain, diarrhea, constipation, melena. : Denies dysuria, frequency, incontinence, hematuria, urinary retention. MUSCULOSKELETAL: denies weakness, joint pain, or bony pain SKIN: See HPI NEUROLOGIC: Denies weakness, headache, numbness, change in speech, confusion, seizures, incoordination. PSYCHIATRIC: No concerning psychosocial issues. 12 point review of systems is negative except for those stated above Patient History <MICHAEL Snowden - Last Filed: 07/21/20 18:35> Medical History Allergy (Chronic 1989) Hearing loss (Chronic 1958) Hyperlipidemia (Chronic ~2011) Low back pain (Chronic 2017) Renal cyst (Chronic Unknown) Rosacea (Chronic 2012) Sciatica (Chronic Unknown) Shoulder pain (Resolved 1987) Urinary incontinence (Chronic 2016) Surgical History Status post cholecystectomy Family History Child Mental health problem Father Mental health problem Social History Smoking Status: Former smoker Tobacco: How many years used: 10 alcohol intake: former substance use type: does not use Smoking Status: Former smoker alcohol intake frequency: holidays/special occasions only Substance Use Type: does not use Exam <MICHAEL Snowden - Last Filed: 07/21/20 18:35> Narrative Exam Narrative: GENERAL: This is a well-nourished, well-developed patient, in no acute distress HEAD: Atraumatic. Normocephalic. No temporal or scalp tenderness. EYES: Pupils equal round and reactive. Extraocular motions intact. No scleral icterus. No injection or drainage. ENT: Nose without bleeding, purulent drainage or septal hematoma. Wearing a mask. Airway patent. NECK: Trachea midline. No JVD or lymphadenopathy. Supple, nontender, no meningeal signs. CARDIOVASCULAR: Regular rate and rhythm RESPIRATORY: Clear to auscultation. Breath sounds equal bilaterally. No wheezes, rales, or rhonchi. No cough. No increased respiratory effort. No accessory muscle use. GASTROINTESTINAL: Abdomen soft, non-tender, nondistended. No hepato- splenomegaly, or palpable masses. No guarding. EXTREMITIES: Skin exam as noted. Right pedal pulses intact. Capillary refill less than 2 seconds all toes right foot. BACK: Nontender without deformity or crepitance. No flank tenderness. NEURO: AOx3. SKIN: Bee sting site noted on right 5th toe. Extending diffuse erythema approximately 2-3 cm, no drainage. Initial Vital Signs Initial Vital Signs: Vital Signs Temperature 98.1 F 07/21/20 15:29 Pulse Rate 79 07/21/20 15:29 Respiratory Rate 15 07/21/20 15:29 Blood Pressure 168/84 H 07/21/20 15:29 Pulse Oximetry 99 07/21/20 15:29 <Amie Rowe DO - Last Filed: 07/26/20 07:26> Initial Vital Signs Initial Vital Signs: Vital Signs Temperature 98.1 F 07/21/20 15:29 Pulse Rate 79 07/21/20 15:29 Respiratory Rate 15 07/21/20 15:29 Blood Pressure 168/84 H 07/21/20 15:29 Pulse Oximetry 99 07/21/20 15:29 Course <MICHAEL Snowden - Last Filed: 07/21/20 18:35> Orders Ordered: Discontinued Medications Diphtheria/Tetanus/Acell Pertussis (Adacel) 0.5 ml IM .ONCE ONE Stop: 07/21/20 16:30 Last Admin: 07/21/20 16:50 Dose: 0.5 ml Documented by: KRISTIN Vital Signs Vital signs: Vital Signs - 8 hr 07/21/20 15:29 07/21/20 17:14 Temperature 98.1 F Pulse Rate 79 65 Respiratory Rate 15 Blood Pressure 168/84 H 168/70 H Pulse Oximetry 99 100 <Amie Rowe DO - Last Filed: 07/26/20 07:26> Orders Ordered: Discontinued Medications Diphtheria/Tetanus/Acell Pertussis (Adacel) 0.5 ml IM .ONCE ONE Stop: 07/21/20 16:30 Last Admin: 07/21/20 16:50 Dose: 0.5 ml Documented by: KRISTIN Vital Signs Vital signs: Vital Signs - 8 hr 07/21/20 15:29 07/21/20 17:14 Temperature 98.1 F Pulse Rate 79 65 Respiratory Rate 15 Blood Pressure 168/84 H 168/70 H Pulse Oximetry 99 100 MDM - Wound/Laceration <ANIA Snowden-BC - Last Filed: 07/21/20 18:35> MDM Narrative Medical decision making narrative: The patient is a 74-year-old female who presents with a chief complaint of pain and swelling related to a bee sting yesterday. Exam indicates localized allergic reaction with no indications of anaphylaxis or further reaction. She has no shortness of breath or signs of systemic illness. Her tetanus is updated as she did not know when her previous tetanus was. She was placed in a burst of steroids with discussions about continuing Benadryl etcetera. We discussed monitoring for signs of fever, extending erythema that is well demarcated as that could indicate cellulitis. Encouraged follow-up with primary care provider in the next few days for re- evaluation. Discussed coming back to the ER for acute concerns such as difficulty breathing. Patient has no questions or concerns upon discharge and states understanding of return precautions as well as care Discharge Plan Departure Patient Disposition: Home Clinical Impression: Accidental bee sting Discharge Date/Time: 07/21/20 17:20 Instructions: How to Care for an Insect Bite or Sting, Insect Bites and Stings (Alternative Therapy), DI for Insect Bites and Stings Activity Restrictions/Additional Instructions: Thank you for trusting us with your care today As discussed, it appears that you have had a localized allergic reaction to your bee-sting. I sent a prescription of prednisone to [facility]. I suggest continued rest ice compression elevation as well as [id number] pain medications and antihistamines as needed and able Please monitor for any acute signs of an allergic reaction such as shortness of breath and come back to emergency department for any acute concerns Please follow-up with primary care provider in the next 48-72 hours. Please monitor for fevers, extending redness etcetera and coming back to the emergency department for any acute concerns Prescriptions: No Action fluticasone propionate [Flonase Allergy Relief] 50 mcg/actuation spray,suspension 1 spray NASAL DAILY PRN (Reason: Allergy Symptoms) RF: 0 Prolia 60 mg/mL syringe 60 mg SUBCUT [id number] RF: 0 famotidine 10 mg tablet 10 mg PO DAILY RF: 0 Metamucil 3.4 gram/5.4 gram powder 1 tbsp PO DAILY RF: 0 gabapentin [Neurontin] 300 mg capsule 600 mg PO QAM Qty: 180 RF: 3 pravastatin 40 mg tablet 40 mg PO BEDTIME Qty: 90 RF: 3 cyclobenzaprine 10 MG tablet 10 mg PO TIDP PRN (Reason: Spasms) RF: 0 ibuprofen 200 mg Tablet 200 mg PO Q6H PRN (Reason: pain) RF: 0 Calcium 500/ D 1000 1 tab PO DAILY RF: 0 Women's Multivitamin 1 tab PO DAILY RF: 0 Referrals: Charles Resendiz DO [Primary Care Provider] - <Amie Rowe DO - Last Filed: 07/26/20 07:26> Cosign ED Attending Costwilaature Attestation: I was immediately available in the dep artment for consultation. Documentation has been reviewed. I agree with assessment and plan.
--- NOTE | 2020-07-21 16:36 | PC.NURSE ---
Stung by a yellow hornet on 07/20/20, bottom of pinky toe. Toes are swollen/red. Swelling/redness extends up into top of foot. 2+ pitting edema
[2020-07-21] MEDS: TET,DIPH,PERTUSS(ACELL),VAC/PF 0.5 ML SYRINGE IM (16:50)
[2020-07-21 17:14] VITALS: BP 168/70; PULSE 65; O2SAT 100
== END 2020-07-21 17:20 | disposition home or self-care (01) ==
PROVIDERS: Emergency Provider Nurse Practitioner Family; PCP Family Medicine
DX: T63.441A Toxic effect of venom of bees, accidental (unintentional), initial encounter (principal); Z23 Encounter for immunization
CPT/HCPCS: 90471; 99283; 90715

== ENCOUNTER → 2020-07-25 15:36 | Outpatient (CLI) | payer MEDICARE, OTHER, SELFPAY | PROVIDERS: PCP Family Medicine; Visit Provider Registered Nurse | DX: T14.8XXA Other injury of unspecified body region, initial encounter (principal) | CPT/HCPCS: 87070; 87075; 87147; 87186; 87205 ==

== ENCOUNTER 2020-11-04 16:50 | Emergency (ER) | payer MEDICARE, OTHER, SELFPAY ==
[2020-11-04 16:55] VITALS: PULSE 106; O2SAT 97
[2020-11-04 16:56] VITALS: BP 189/87; PULSE 98; O2SAT 97
[2020-11-04 16:58] VITALS: BP 189/87; PULSE 99; RESP 18; TEMP 36.8; O2SAT 98
[2020-11-04 17:00] VITALS: BP 155/69; PULSE 83; O2SAT 99
--- NOTE | 2020-11-04 17:28 | ED_ITS ---
HPI - General Adult General Chief complaint: Shortness of Breath/Dyspnea Stated complaint: RIB CAGE PAIN SOB Time Seen by Provider: 11/04/20 17:04 Source: patient Mode of arrival: Family Vehicle Limitations: no limitations History of Present Illness HPI narrative: 74-year-old female here for evaluation of right-sided chest pain. She states that off and on for the past 6 days she has had pain on the right side of her chest. She states that it travels along the front of her chest and under her breast. It is worse when she takes a deep breath worse when she bends over and worse when she touches it. She had a pain under her breast and went to the chiropractor and had an adjustment and since then she now has pain that she came the emergency department for today. Has not tried anything for this pain. Related Data Home Medications Medication Instructions Recorded Confirmed fluticasone propionate 50 1 spray NASAL DAILY PRN 06/09/18 09/26/20 mcg/actuation nasal spray,suspension denosumab 60 mg/mL subcutaneous 60 mg SUBCUT [id number] 06/01/19 09/26/20 syringe Calcium 500/ D 1000 1 tab PO DAILY 12/03/19 09/26/20 Women's Multivitamin 1 tab PO DAILY 12/03/19 09/26/20 cyclobenzaprine 10 mg PO TIDP PRN 12/03/19 09/26/20 ibuprofen 200 mg PO Q6H PRN 12/03/19 09/26/20 famotidine 10 mg tablet 10 mg PO DAILY 05/09/20 09/26/20 psyllium husk 3.4 gram/5.4 gram 1 tbsp PO DAILY 05/09/20 09/26/20 oral powder Previous Rx's Medication Instructions Recorded gabapentin 300 mg capsule 600 mg PO QAM #180 cap 09/27/20 pravastatin 40 mg tablet 40 mg PO BEDTIME #90 tab 09/27/20 Allergies Allergy/AdvReac Type Severity Reaction Status Date / Time omeprazole Allergy Mild Itching in Verified 07/25/20 14:43 feet piroxicam Allergy Mild hives Verified 09/26/20 08:58 alendronate sodium Allergy Unknown Verified 07/25/20 14:43 [From FOSAMAX] iodine [IODINE] Allergy Unknown Verified 07/25/20 14:43 Sulfa (Sulfonamide Allergy Unknown Verified 07/25/20 14:43 Antibiotics) Review of Systems Constitutional Constitutional: Denies headache(s) ENT Ears, Nose, Mouth, and Throat: Denies headache(s) Cardiovascular Cardiovascular: Reports chest pain (Chest wall pain) Respiratory Comments: Pain with inspiration Gastrointestinal Gastrointestinal: Denies abdominal pain, Denies nausea and Denies vomiting Genitourinary Genitourinary: Denies dysuria Genitourinary: Denies dysuria Musculoskeletal Musculoskeletal: Denies arthralgias and Denies myalgias Integumentary/Breasts Skin/Breast: Denies lesions and Denies rash Neurologic Neurologic: Denies behavioral changes and Denies headache(s) Psychiatric Psychiatric: Denies behavioral changes Hematologic/Lymphatic Hematologic/Lymphatic: Denies easy bleeding and Denies easy bruising Allergic/Immunologic Allergic/Immunologic: Denies urticaria Patient History Medical History Allergy (1989) Hearing loss (1958) Hyperlipidemia (~2011) Low back pain (2016) Metatarsalgia Renal cyst (Unknown) Rosacea (2012) Sciatica (Unknown) Shoulder pain (1987) Urinary incontinence (2016) Surgical History Status post cholecystectomy Family History Child Mental health problem Father Mental health problem Social History Smoking Status: Former smoker Tobacco: How many years used: 10 alcohol intake: former substance use type: does not use Smoking Status: Former smoker alcohol intake frequency: 0-2 drinks per day Substance Use Type: does not use Exam Initial Vital Signs Initial Vital Signs: Vital Signs Pulse Rate 106 H 11/04/20 16:55 Pulse Oximetry 97 11/04/20 16:55 Const General: cooperative, comfortable and well developed Limitations: mental status not altered HENCA Head: normal to inspection and normocephalic Chest Chest: No crepitus and tenderness (Along the mid/lower ribs anteriorly on the right with palpation) Breast inspection: normal inspection of the breasts Resp Effort & Inspection: normal respiratory effort Auscultation: clear to auscultation bilaterally Back/Spine/Pelvis Back: No CVA tenderness Skin Lesions: no lesions Rashes: no rashes Neuro General: patient alert, patient awake and patient oriented x3 Cognition: normal cognition Speech: speech normal Extrem General: capillary refill normal Psych Appearance: grossly normal and well kempt Scores GCS Sandra coma scale eye opening: Spontaneous [place] coma scale verbal response: Orientated Sandra coma scale motor response: Obey commands [place] coma scale total score: 15 Course Vital Signs Vital signs: Vital Signs - 8 hr 11/04/20 16:55 11/04/20 16:56 11/04/20 16:58 Temperature 98.2 F Pulse Rate 106 H 98 H 99 H Respiratory Rate 18 Blood Pressure 189/87 H 189/87 H Pulse Oximetry 97 97 98 11/04/20 17:00 11/04/20 17:30 11/04/20 17:35 Temperature Pulse Rate 83 70 71 Respiratory Rate 18 Blood Pressure 155/69 H 143/66 H 143/46 H Pulse Oximetry 99 98 98 Medical Decision Making ECG Data Attestation: I personally reviewed and interpreted this ECG as follows: Prior ECG tracings: not available for review Interpretation: Sinus rhythm Ventricular rate 82 PVC Normal QRS Normal QTC No ST T wave changes MDM Narrative Medical decision making narrative: Patient does have tenderness to palpation along the right anterior chest wall. She states that this clearly reproduces the pain that brought her in today. There is no skin changes over the area. I have low suspicion for ACS. I suspect this is either an intercostal muscle strain versus costochondritis. Given the fact that it does radiate laterally I have would be more concerned for an intercostal muscle strain. I feel we can hold on further workup for now. Her lungs are clear. She was given return precautions. She expressed understanding and agreement. Discharge Plan Departure Patient Disposition: Home Clinical Impression: Acute chest wall pain Instructions: DI for Atypical Chest Pain Activity Restrictions/Additional Instructions: Recommend that you continue with the ibuprofen as needed for your discomfort. Contact your primary provider for a follow-up. Return to the emergency department for any new or worsening symptoms Prescriptions: No Action fluticasone propionate [Flonase Allergy Relief] 50 mcg/actuation spray,suspension 1 spray NASAL DAILY PRN (Reason: Allergy Symptoms) RF: 0 Prolia 60 mg/mL syringe 60 mg SUBCUT [id number] RF: 0 famotidine 10 mg tablet 10 mg PO DAILY RF: 0 Metamucil 3.4 gram/5.4 gram powder 1 tbsp PO DAILY RF: 0 pravastatin 40 mg tablet 40 mg PO BEDTIME Qty: 90 RF: 3 gabapentin [Neurontin] 300 mg capsule 600 mg PO QAM Qty: 180 RF: 3 cyclobenzaprine 10 MG tablet 10 mg PO TIDP PRN (Reason: Spasms) RF: 0 ibuprofen 200 mg Tablet 200 mg PO Q6H PRN (Reason: pain) RF: 0 Calcium 500/ D 1000 1 tab PO DAILY RF: 0 Women's Multivitamin 1 tab PO DAILY RF: 0 Referrals: Charles Resendiz DO [Primary Care Provider] -
[2020-11-04 17:30] VITALS: BP 143/66; PULSE 70; RESP 18; O2SAT 98
[2020-11-04 17:35] VITALS: BP 143/46; PULSE 71; O2SAT 98
== END 2020-11-04 17:39 | disposition home or self-care (01) ==
PROVIDERS: Emergency Provider Emergency Medicine; PCP Family Medicine
DX: R07.89 Other chest pain (principal); R06.02 Shortness of breath
CPT/HCPCS: 93005; 93010; 99281

== ENCOUNTER → 2021-03-15 07:21 | Outpatient (CLI) | payer MEDICARE, OTHER, SELFPAY ==
[2021-03-15 08:01] LABS: BUN Creatinine Ratio 22.8 (6-22); Blood Urea Nitrogen 18 mg/dL (7-17); Calcium 9.8 mg/dL (8.4-10.2); Carbon Dioxide 27 mmol/L (22-32); Chloride 106 mmol/L (98-107); Estimated Glomerular Filt Rate > 60.0 mL/min (>60); Glucose 107 mg/dL (80-110); HEMOLYSIS < 15 (0-50); Sodium 139 mmol/L (137-145)
== END ==
PROVIDERS: PCP Family Medicine; Referring Provider Student in an Organized Health Care Education/Training Program; Visit Provider Student in an Organized Health Care Education/Training Program
DX: M81.0 Age-related osteoporosis without current pathological fracture (principal)
CPT/HCPCS: 36415; 80048; 82306

== ENCOUNTER → 2021-04-03 10:24 | Outpatient (CLI) | payer MEDICARE, OTHER, SELFPAY ==
--- NOTE | 2021-04-03 | DI.MG.S_ITS ---
BILATERAL DIGITAL SCREENING MAMMOGRAM 3D/2D WITH CAD: 04/03/2021 CLINICAL: Routine screening. Comparison is made to exams dated: 10/26/2019 mammogram, 03/27/2018 mammogram, and 10/30/2016 mammogram - [facility]. There are scattered fibroglandular elements in both breasts. Current study was also evaluated with a Computer Aided Detection (CAD) system. No significant masses, calcifications, or other findings are seen in either breast. There has been no significant interval change. IMPRESSION: NEGATIVE There is no mammographic evidence of malignancy. A 1 year screening mammogram is recommended. This exam was interpreted at Station ID: [id number]. NOTE: For mammograms, a report in lay terms will be sent to the patient. Approximately 15% of breast malignancies will not be visualized mammographically. In the management of a palpable breast mass, a negative mammogram must not discourage biopsy of a clinically suspicious lesion. Electronically Signed By: Nash lockwood/polina:04/03/2021 11:35:10 letter sent: Normal Exam ACR BI-RADS Category 1: Negative [id number]
== END ==
PROVIDERS: PCP Family Medicine; Referring Provider Family Medicine; Visit Provider Family Medicine
DX: Z12.31 Encounter for screening mammogram for malignant neoplasm of breast (principal)
CPT/HCPCS: 77063; 77067

== ENCOUNTER → 2021-05-06 08:59 | Outpatient (CLI) | payer MEDICARE, OTHER, SELFPAY | PROVIDERS: PCP Family Medicine; Referring Provider Student in an Organized Health Care Education/Training Program; Visit Provider Student in an Organized Health Care Education/Training Program | DX: M81.0 Age-related osteoporosis without current pathological fracture (principal); E55.9 Vitamin D deficiency, unspecified | CPT/HCPCS: 36415; 82306 ==

== ENCOUNTER → 2021-05-19 13:39 | Outpatient (CLI) | payer MEDICARE, OTHER, SELFPAY ==
--- NOTE | 2021-05-19 13:41 | DI.RAD.S_ITS ---
PROCEDURE: XR CERVICAL SPINE 2V OR 3V INDICATIONS: chronic neck pain TECHNIQUE: 3 view(s) of the cervical spine were acquired. COMPARISON: [facility], CERVICAL SPINE 2 OR 3 VIEWS, 04/11/2015, 12:13. FINDINGS: Bones: No fractures or dislocations to the T1 level. The lateral masses of C1 appear intact on the odontoid view. No suspicious bony lesions. Moderate to severe multilevel degenerative change, most severe from C4-5 to C6-7. Multi level uncovertebral hypertrophy. Soft tissues: No prevertebral soft tissue swelling. IMPRESSION: Multilevel degenerative changes most severe from C4-5 to C6-7. Dictated by: Glory Sultana M.D. on 05/19/2021 at 15:50 Approved by: Glory Sultana M.D. on 05/19/2021 at 15:52
--- NOTE | 2021-05-19 13:41 | DI.RAD.S_ITS ---
PROCEDURE: XR LUMBAR SPINE 2-3V INDICATIONS: chronic back pain TECHNIQUE: 3 views of the lumbar spine were acquired. COMPARISON: [facility], , L-SPINE 2-3 VIEWS, 11/29/2017, 13:32. FINDINGS: Bones: 5 [id number] vertebrae are present. There is normal bony alignment. No vertebral body compression fractures. No suspicious bony lesions. Multilevel disc degeneration, severe at the L5-S1 level. Moderate L4-L5 and L5-S1 facet joint arthropathy. Soft tissues: Overlying bowel gas pattern is normal. No suspicious soft tissue calcifications. IMPRESSION: Multilevel spondylosis, with severe disc degeneration at the L5-S1 level similar to prior exam. Dictated by: Armani Delatorre [facility] Interpreted: Yuan Drake MD on 05/19/2021 at 14:46 Transcribed by: MICAH on 05/19/2021 at 14:47 Approved by: Yuan Drake M.D. on 05/19/2021 at 14:49
== END ==
PROVIDERS: PCP Family Medicine; Referring Provider Registered Nurse; Visit Provider Registered Nurse
DX: M54.2 Cervicalgia (principal); M54.9 Dorsalgia, unspecified; M51.37 Other intervertebral disc degeneration, lumbosacral region; M47.816 Spondylosis without myelopathy or radiculopathy, lumbar region; M47.817 Spondylosis without myelopathy or radiculopathy, lumbosacral region; M47.812 Spondylosis without myelopathy or radiculopathy, cervical region; G89.29 Other chronic pain
CPT/HCPCS: 72040; 72110

== ENCOUNTER → 2021-07-22 14:43 | Outpatient (CLI) | payer MEDICARE, OTHER, SELFPAY ==
[2021-07-22 15:14] LABS: COVID19 -Nasal RAPID Negative (Negative)
== END ==
PROVIDERS: PCP Family Medicine; Visit Provider Nurse Practitioner
DX: R09.81 Nasal congestion (principal); J02.9 Acute pharyngitis, unspecified; Z20.822 Contact with and (suspected) exposure to COVID-19
CPT/HCPCS: 87635

== ENCOUNTER → 2022-05-31 10:18 | Outpatient (CLI) | payer MEDICARE, OTHER, SELFPAY ==
[2022-05-31 13:57] LABS: Add Manual Diff / Slide Review NO; Basophils Absolute Auto 100 /uL (0-100); Basophils Percent Auto 1.1 % (0-2); Eosinophils Absolute Auto 100 /uL (0-450); Eosinophils Percent Auto 1.9 % (2-4); Hematocrit 42.2 % (36-46); Hemoglobin 14.2 g/dL (12.0-16.0); Lymphocytes Absolute Auto 2000 /uL (1100-4500); Lymphocytes Percent Auto 37.7 % (25-40); Mean Corpuscular HGB Conc 33.6 % (30-36); Mean Corpuscular Volume 95.2 fL (80-100); Monocytes Absolute Auto 500 /uL (0-900); Monocytes Percent Auto 8.7 % (3-14); Neutrophils Absolute Auto 2700 /uL (1500-7000); Neutrophils Percent Auto 50.6 % (50-75); Platelet Count 261 X10^3/uL (150-400); Red Blood Cell Count 4.43 X10^6/uL (4.0-5.2); Red Cell Distribution Width 12.7 % (11.6-14.8); White Blood Cell Count 5.3 X10^3/uL (4.5-11.0)
[2022-05-31 14:55] LABS: Alanine Aminotransferase 20 IU/L (<35); Albumin 4.3 g/dL (3.5-5.0); Albumin Globulin Ratio 1.6 (1.0-2.8); Alkaline Phosphatase 55 U/L (38-126); Aspartate Aminotransferase 34 IU/L (14-36); BUN Creatinine Ratio 21.4 (6-22); Bilirubin Total 0.7 mg/dL (0.2-1.3); Blood Urea Nitrogen 15 mg/dL (7-17); Calcium 8.8 mg/dL (8.4-10.2); Carbon Dioxide 25 mmol/L (22-32); Chloride 105 mmol/L (98-107); Cholesterol 168 mg/dL (140-199); Estimated Glomerular Filt Rate > 60 mL/min (>60); Globulin 2.7 g/dL (1.7-4.1); Glucose 102 mg/dL (80-110); HDL Cholesterol 61 mg/dL (40-60); HEMOLYSIS < 15 (0-50); LDL Cholesterol Calculated 85 mg/dL (<100); Potassium 4.2 mmol/L (3.4-5.1); Sodium 140 mmol/L (137-145); Triglycerides 108 mg/dL (35-150)
[2022-06-01 07:58] LABS: TSH w/ Reflex to FT4 1.78 uIU/mL (0.47-4.68)
== END ==
PROVIDERS: PCP Family Medicine; Referring Provider Family Medicine; Visit Provider Family Medicine
DX: Z00.00 Encounter for general adult medical examination without abnormal findings (principal); E78.5 Hyperlipidemia, unspecified; K21.9 Gastro-esophageal reflux disease without esophagitis
CPT/HCPCS: 36415; 80053; 80061; 84443; 85025

== ENCOUNTER → 2022-06-19 13:38 | Outpatient (CLI) | payer MEDICARE, OTHER, SELFPAY ==
[2022-06-19 15:15] LABS: BUN Creatinine Ratio 20.3 (6-22); Blood Urea Nitrogen 16 mg/dL (7-17); Calcium 9.5 mg/dL (8.4-10.2); Carbon Dioxide 27 mmol/L (22-32); Chloride 104 mmol/L (98-107); Estimated Glomerular Filt Rate > 60 mL/min (>60); Glucose 94 mg/dL (80-110); HEMOLYSIS < 15 (0-50); Potassium 5.1 mmol/L (3.4-5.1); Sodium 139 mmol/L (137-145)
[2022-06-19 16:45] LABS: Vitamin D 25 Hydroxy (D3) 72.9 ng/mL (30.0-100.0)
== END ==
PROVIDERS: PCP Family Medicine; Referring Provider Student in an Organized Health Care Education/Training Program; Visit Provider Student in an Organized Health Care Education/Training Program
DX: E55.9 Vitamin D deficiency, unspecified (principal); M81.0 Age-related osteoporosis without current pathological fracture
CPT/HCPCS: 36415; 80048; 82306

== ENCOUNTER → 2022-07-02 13:52 | Outpatient (CLI) | payer MEDICARE, OTHER, SELFPAY ==
--- NOTE | 2022-07-02 13:53 | DI.RAD.S_ITS ---
PROCEDURE: XR ABDOMEN MIN 2V INDICATIONS: Constipation TECHNIQUE: 2 views of the abdomen were acquired. COMPARISON: None. FINDINGS: Surgical changes and devices: Cholecystectomy clips. Bowel: No pneumoperitoneum. Moderate amount of scattered stool throughout the colon; otherwise bowel gas pattern is normal. Soft tissues: No masses; visualized solid organ contours appear normal in size. No suspicious abdominal calcifications. Bones: No suspicious bony abnormalities. IMPRESSION: Moderate fecal loading. Dictated by: Armani Delatorre [facility] Interpreted: Axel Sellers MD on 07/02/2022 at 14:28 Approved by: Axel Sellers M.D. on 07/02/2022 at 16:15
== END ==
PROVIDERS: PCP Family Medicine; Referring Provider Nurse Practitioner Family; Visit Provider Nurse Practitioner Family
DX: K59.00 Constipation, unspecified (principal); R10.30 Lower abdominal pain, unspecified
CPT/HCPCS: 74019

== ENCOUNTER → 2022-07-04 09:20 | Outpatient (CLI) | payer MEDICARE, OTHER, SELFPAY ==
[2022-07-04 10:19] LABS: COVID19 -Nasal RAPID Negative (Negative)
== END ==
PROVIDERS: PCP Family Medicine; Visit Provider Nurse Practitioner Family
DX: Z20.822 Contact with and (suspected) exposure to COVID-19 (principal)
CPT/HCPCS: 87635

== ENCOUNTER → 2022-07-20 10:46 | Outpatient (CLI) | payer MEDICARE, OTHER, SELFPAY ==
--- NOTE | 2022-07-20 | DI.MG.S_ITS ---
BILATERAL DIGITAL SCREENING MAMMOGRAM 3D/2D WITH CAD: 07/20/2022 CLINICAL: Routine screening. Comparison is made to exams dated: 04/03/2021 mammogram, 10/26/2019 mammogram, and 03/27/2018 mammogram - [facility]. There are scattered areas of fibroglandular density in both breasts (category b / 25%-50% glandular tissue). Current study was also evaluated with a Computer Aided Detection (CAD) system. No significant masses, calcifications, or other findings are seen in either breast. There has been no significant interval change. IMPRESSION: NEGATIVE There is no mammographic evidence of malignancy. A 1 year screening mammogram is recommended. Based on the Tyrer Cuzick model (a risk assessment model) the patient's lifetime risk is 2.4% and her 10 year risk is 2.2%. According to the ACR, ACS, and NCCN guidelines, an annual breast MRI exam along with mammogram is recommended if the patient's lifetime risk is 20% or greater. This exam was interpreted at Station ID: [id number]. NOTE: For mammograms, a report in lay terms will be sent to the patient. Approximately 15% of breast malignancies will not be visualized mammographically. In the management of a palpable breast mass, a negative mammogram must not discourage biopsy of a clinically suspicious lesion. Electronically Signed By: Shakeel valles/polina:07/20/2022 16:22:14 letter sent: Normal Exam ACR BI-RADS Category 1: Negative [id number]
== END ==
PROVIDERS: PCP Family Medicine; Referring Provider Family Medicine; Visit Provider Family Medicine
DX: Z12.31 Encounter for screening mammogram for malignant neoplasm of breast (principal)
CPT/HCPCS: 77063; 77067

== ENCOUNTER → 2022-08-31 13:24 | Outpatient (CLI) | payer MEDICARE, OTHER, SELFPAY ==
[2022-08-31 15:46] LABS: BUN Creatinine Ratio 20.7 (6-22); Blood Urea Nitrogen 18 mg/dL (7-17); Calcium 9.3 mg/dL (8.4-10.2); Carbon Dioxide 22 mmol/L (22-32); Chloride 104 mmol/L (98-107); Estimated Glomerular Filt Rate > 60 mL/min (>60); Glucose 107 mg/dL (80-110); HEMOLYSIS 15 (0-50); Potassium 4.1 mmol/L (3.4-5.1); Sodium 137 mmol/L (137-145)
== END ==
PROVIDERS: PCP Family Medicine; Referring Provider Student in an Organized Health Care Education/Training Program; Visit Provider Student in an Organized Health Care Education/Training Program
DX: M81.0 Age-related osteoporosis without current pathological fracture (principal); E55.9 Vitamin D deficiency, unspecified
CPT/HCPCS: 36415; 80048; 82306

== ENCOUNTER → 2022-09-26 14:40 | Outpatient (CLI) | payer MEDICARE, OTHER, SELFPAY | PROVIDERS: PCP Family Medicine; Referring Provider Student in an Organized Health Care Education/Training Program; Visit Provider Student in an Organized Health Care Education/Training Program | DX: M81.0 Age-related osteoporosis without current pathological fracture (principal); Z79.83 Long term (current) use of bisphosphonates; Z78.0 Asymptomatic menopausal state | CPT/HCPCS: 77080 ==

== ENCOUNTER 2023-02-05 18:38 | Emergency (ER) | payer MEDICARE, OTHER, SELFPAY ==
[2023-02-05 19:06] VITALS: BP 159/84; PULSE 90; RESP 19; TEMP 37.1; O2SAT 96; BMI 29.7
[2023-02-05 19:59] LABS: Influenza A - CEPHEID Flu A NEGATIVE (NEGATIVE); Influenza B - CEPHEID Flu B NEGATIVE (NEGATIVE); Respiratory Syncytial Virus Negative (Negative)
[2023-02-05 20:02] LABS: COVID-19 CEPHEID 4-PLEX PCR POSITIVE (Negative)
[2023-02-05 20:23] VITALS: O2SAT 90
[2023-02-05 20:24] VITALS: BP 169/85; PULSE 89; O2SAT 95
[2023-02-05 20:30] VITALS: BP 157/73; PULSE 85; O2SAT 98
[2023-02-05 21:00] VITALS: O2SAT 98
--- NOTE | 2023-02-05 22:46 | ED.URI ---
HPI - URI/Sore Throat General Chief Complaint: Upper Respiratory Symptoms Stated Complaint: Sore throat, headache, cough, fever Time Seen by Provider: 02/05/23 22:43 Source: patient Mode of arrival: Family Vehicle History of Present Illness HPI Narrative: Patient is a 77-year-old female without significant past medical history presenting with headache sore throat body aches cough starting today. She says she really denies any chest pain, but nursing staff did report to chest pain. She is no dyspnea with exertion. She overall just does not feel well. You abdominal pain nausea vomiting no other symptoms. Related Data Home Medications Medication Instructions Recorded Confirmed fluticasone propionate 50 1 spray intranasal DAILY PRN 06/09/18 01/15/23 mcg/actuation nasal Allergy Symptoms spray,suspension (Flonase Allergy Relief) Calcium 500/ D 1000 1 tab PO DAILY 12/03/19 01/15/23 Women's Multivitamin 1 tab PO DAILY 12/03/19 01/15/23 ibuprofen 200 mg tablet 200 mg PO Q6H PRN pain 12/03/19 01/15/23 famotidine 10 mg tablet 10 mg PO DAILY 05/09/20 01/15/23 psyllium husk 3.4 gram/5.4 gram 1 tbsp PO DAILY 05/09/20 01/15/23 oral powder (Metamucil) zoledronic acid 5 mg/100 mL in IV 02/22/22 01/15/23 mannitol 5 %-water intravenous piggybck (Reclast) Previous Rx's Medication Instructions Recorded cyclobenzaprine 10 mg tablet 10 mg PO BEDTIME PRN Spasms #30 05/19/21 tabs gabapentin 300 mg capsule See Rx Instructions .Route 07/10/22 .COMPLEX #180 caps pravastatin 40 mg tablet 40 mg PO BEDTIME #90 tabs 01/10/23 Allergies Allergy/AdvReac Type Severity Reaction Status Date / Time omeprazole Allergy Mild Itching in Verified 02/05/23 19:06 feet piroxicam Allergy Mild hives Verified 02/05/23 19:06 alendronate sodium Allergy Unknown Verified 02/05/23 19:06 [From FOSAMAX] iodine [IODINE] Allergy Unknown Verified 02/05/23 19:06 Sulfa (Sulfonamide Allergy Unknown Verified 02/05/23 19:06 Antibiotics) Review of Systems Review of Systems ROS Unobtainable: All systems reviewed & are unremarkable except as noted in HPI and below Patient History Medical History Allergy (1989) Folliculitis Hearing loss (1959) Hyperlipidemia (~2011) Low back pain (2017) Metatarsalgia Renal cyst (Unknown) Rosacea (2013) Sciatica (Unknown) Shoulder pain (1987) Urinary incontinence (2017) Well adult exam Surgical History Status post cholecystectomy Family History Child Mental health problem Father Mental health problem Social History Smoking Status: Former smoker Tobacco: How many years used: 10 alcohol intake: former substance use type: does not use Smoking Status: Former smoker tobacco type: cigarettes alcohol intake frequency: 0-2 drinks per day Substance Use Type: does not use Exam Initial Vital Signs Initial Vital Signs: Vital Signs Temperature 98.7 F 02/05/23 19:06 Pulse Rate 90 02/05/23 19:06 Respiratory Rate 19 02/05/23 19:06 Blood Pressure 159/84 H 02/05/23 19:06 Pulse Oximetry 96 02/05/23 19:06 Oxygen Delivery Method Room Air 02/05/23 19:06 GENERAL: Alert pleasant 77-year-old female HEENT: Head atraumatic,EOMI, pupils reactive, face symmetric, moist mucous membranes PHARYNX: No significant erythema or uvula deviation CARDIOVASCULAR: Regular rate and rhythm without murmurs, rubs or gallops. RESPIRATORY: Breath sounds equal bilaterally, no wheezes rales or rhonchi. ABDOMEN: Soft, nontender. Normoactive bowel sounds all 4 quadrants. No guarding or rebound. EXTREMITIES: Normal range of motion, no clubbing or edema. Neurovascularly intact NEUROLOGICAL: Alert and oriented x4. SKIN: Warm, dry, no laceration, no petechiae, no rashes or lesions. Course Orders Ordered: ED Orders 02/05/23 19:14 EKG-12 Lead Stat 02/05/23 19:16 Covid-19 + FLU A/B + RSV - PCR Stat Vital Signs Vital signs: Vital Signs - 8 hr 02/05/23 19:06 Temperature 98.7 F Pulse Rate 90 Respiratory Rate 19 Blood Pressure 159/84 H Pulse Oximetry 96 Oxygen Delivery Method Room Air MDM - URI/Sore Throat Lab Data Labs: Lab Results 02/05/23 Range/Units 19:16 SARS-CoV-2 (PCR) Positive H (Negative) Influenza A (RT-PCR) Flu a negative (NEGATIVE) Influenza B (RT-PCR) Flu b negative (NEGATIVE) RSV (PCR) Negative (Negative) ECG Data Interpretation: Sinus rhythm rate 91 HI interval 136 QRS [address] changes no T-wave inversions MDM Narrative Medical decision making narrative: Patient 77-year-old female who presents with upper respiratory like symptoms headache sore throat fever cough mild chest tightness which she told nursing but when I asked actually is possibly abdominal pain. She is found to be COVID positive. No evidence of hypoxia. No reason for further workup. EKG was done per nursing staff without evidence of ischemia. Recommend supportive care only Discharge Plan Departure Patient Disposition: Home Clinical Impression: COVID-19 Instructions: DI for COVID-19 (Suspected or Confirmed ) Activity Restrictions/Additional Instructions: *You have been diagnosed with COVID-19 *What to do: At this time stay home and rest. Increase fluid intake. Monitor oxygen as needed should be greater than 91%. *Continue to take medications as directed Tylenol 650 mg every 6 hours if needed for fzaj-ob-whmagadz pain Motrin 600 mg every 6 hours if needed for czaa-xo-cmhwkfzv pain *Follow up with your primary care provider in 2-3 days or call [phone] *Return to ER if you should have oxygen less than 90%, not tolerating fluids increasing pain or any new, worsening or concerning symptoms Prescriptions: No Action fluticasone propionate [Flonase Allergy Relief] 50 mcg/actuation spray,suspension 1 spray NASAL DAILY PRN (Reason: Allergy Symptoms) gabapentin 300 mg capsule See Rx Instructions .ROUTE .COMPLEX Qty: 180 2RF Dose Instruction: take 2 capsules by mouth every morning Rx Instructions: take 2 capsules by mouth every morning pravastatin 40 mg tablet 40 mg PO BEDTIME Qty: 90 3RF cyclobenzaprine 10 mg tablet 10 mg PO BEDTIME PRN (Reason: Spasms) Qty: 30 1RF zoledronic [id number] [Reclast] 5 mg/100 mL piggyback IV famotidine 10 mg tablet 10 mg PO DAILY Metamucil 3.4 gram/5.4 gram powder 1 tbsp PO DAILY Rx Instructions: mix into at least 8 oz of water or juice before administering ibuprofen 200 mg Tablet 200 mg PO Q6H PRN (Reason: pain) Calcium 500/ D 1000 1 tab PO DAILY Women's Multivitamin 1 tab PO DAILY Referrals: Charles Resendiz DO [Primary Care Provider] - Stand Alone Forms: Patient Portal/API
[2023-02-05 23:14] VITALS: BP 168/88; PULSE 92; O2SAT 85
== END 2023-02-05 23:19 | disposition home or self-care (01) ==
PROVIDERS: Emergency Provider Emergency Medicine; PCP Family Medicine
DX: U07.1 COVID-19 (principal); R07.9 Chest pain, unspecified
CPT/HCPCS: 0241U; 93005; 93010; 99282; 99283

== ENCOUNTER → 2023-03-16 10:43 | Outpatient (CLI) | payer MEDICARE, OTHER, SELFPAY ==
--- NOTE | 2023-03-16 10:45 | DI.MRI.S_ITS ---
PROCEDURE: MR KNEE LT WO CON INDICATIONS: medial meniscus due to old tear or injury, left kn TECHNIQUE: Noncontrast sagittal PD fast spin echo and T2 fast spin echo with fat saturation, sagittal 3-D FLASH with fat saturation; coronal T1 spin echo and PD fast spin echo with fat saturation, and axial PD fast spin echo with fat saturation through the knee. COMPARISON: [facility] Hayward, CR, XR KNEE 4+ VIEWS LEFT, 12/04/2022, 14:16. FINDINGS: Image quality: Excellent. Menisci: There is an oblique tear involving the peripheral aspect of the body of the medial meniscus. A radial tear is seen in the posterior horn of the medial meniscus. Suspect a small radial tear of the posterior horn of the lateral meniscus. The meniscal root ligaments appear intact. Cruciate ligaments: The anterior and posterior cruciate ligaments appear intact. Medial structures: The medial collateral ligament appears intact. The semimembranosus tendon insertions and meniscocapsular junction appear intact. Visualized portions of the pes anserinus tendons appear normal. No abnormal bursal fluid. Lateral structures: The lateral collateral ligament, long and short heads of the biceps femoris tendon appear intact. The popliteus tendon appears normal. Iliotibial band appears normal. Anterior structures: The quadriceps and patellar tendons appear intact. Mild quadriceps tendinitis Patellar alignment is normal. No femoral trochlear dysplasia or ventral trochlear prominence. No edema in the infrapatellar fat pad. Bones and cartilage: No bone marrow contusions or fractures. There is tricompartmental cartilage fibrillation with mild cartilage thinning. A 4 mm full-thickness cartilage defect is seen in the medial femoral condyle. Joint space: There is physiologic knee joint fluid. There is a small Mann's cyst. Normal appearing synovial plicae are incidentally noted. IMPRESSION: 1. Oblique tear of the body of the meniscal tear. 2. Question a small radial tear of the posterior horn of the lateral meniscus. 3. A 4 mm full-thickness cartilage defect is present in the medial femoral condyle. There is also mild, generalized tricompartmental cartilage thinning and fibrillation. 4. Low-grade quadriceps tendinitis. 5. Small Mann's cyst. Dictated by: Vern Ryan M.D. on 03/18/2023 at 7:47 Approved by: Vern Ryan M.D. on 03/18/2023 at 8:50
== END ==
PROVIDERS: PCP Family Medicine; Referring Provider Orthopaedic Surgery; Visit Provider Orthopaedic Surgery
DX: S83.222A Peripheral tear of medial meniscus, current injury, left knee, initial encounter (principal); M76.892 Other specified enthesopathies of left lower limb, excluding foot; M71.22 Synovial cyst of popliteal space [Baker], left knee
CPT/HCPCS: 73721

== ENCOUNTER → 2023-03-29 13:21 | Outpatient (CLI) | payer MEDICARE, OTHER, SELFPAY ==
[2023-03-29 14:24] LABS: Add Manual Diff / Slide Review NO; Basophils Absolute Auto 100 /uL (0-100); Eosinophils Absolute Auto 100 /uL (0-450); Eosinophils Percent Auto 1.2 % (2-4); Hematocrit 41.8 % (36-46); Hemoglobin 14.4 g/dL (12.0-16.0); Lymphocytes Absolute Auto 1800 /uL (1100-4500); Lymphocytes Percent Auto 31.9 % (25-40); Mean Corpuscular HGB Conc 34.4 % (30-36); Mean Corpuscular Hemoglobin 32.3 PG (26-34); Mean Corpuscular Volume 94.1 fL (80-100); Monocytes Absolute Auto 500 /uL (0-900); Monocytes Percent Auto 8.4 % (3-14); Neutrophils Absolute Auto 3200 /uL (1500-7000); Neutrophils Percent Auto 57.5 % (50-75); Platelet Count 262 X10^3/uL (150-400); Red Blood Cell Count 4.44 X10^6/uL (4.0-5.2); Red Cell Distribution Width 13.2 % (11.6-14.8); White Blood Cell Count 5.6 X10^3/uL (4.5-11.0)
[2023-03-29 15:24] LABS: BUN Creatinine Ratio 18.7 (6-22); Blood Urea Nitrogen 14 mg/dL (7-17); Calcium 9.3 mg/dL (8.4-10.2); Carbon Dioxide 28 mmol/L (22-32); Chloride 101 mmol/L (98-107); Estimated Glomerular Filt Rate > 60 mL/min (>60); Glucose 92 mg/dL (80-110); HEMOLYSIS < 15 (0-50); Potassium 4.1 mmol/L (3.4-5.1); Sodium 139 mmol/L (137-145)
== END ==
PROVIDERS: PCP Family Medicine; Referring Provider Orthopaedic Surgery; Visit Provider Orthopaedic Surgery
DX: Z01.818 Encounter for other preprocedural examination (principal); Z01.812 Encounter for preprocedural laboratory examination
CPT/HCPCS: 36415; 80048; 85025; 93005

== ENCOUNTER 2023-04-10 07:20 | Day surgery (SDC) | payer MEDICARE, OTHER, SELFPAY ==
[2023-04-08 12:43] VITALS: BMI 31.0
[2023-04-10] VITALS (20 sets, daily range): BP systolic 97–156; BP diastolic 40–82; PULSE 80–90; RESP 12–20; TEMP 36.2–36.7; O2SAT 86–99; BMI 31.0
--- NOTE | 2023-04-10 06:00 | DI.RAD.S_ITS ---
PROCEDURE: XR KNEE LT 1TO2V INDICATIONS: partial left knee TECHNIQUE: 2 view(s) of the knee acquired. COMPARISON: None. FINDINGS: Bones: Patient is status post medial femoral tibial compartment arthroplasty. Hardware components are in expected positions. Visualized bony structures are intact. Soft tissues: Overlying postoperative changes are noted. IMPRESSION: Postop changes from left medial femoral tibial compartment arthroplasty with anatomic left knee alignment. Dictated by: Axel Sellers M.D. on 04/10/2023 at 9:35 Approved by: Axel Sellers M.D. on 04/10/2023 at 9:35
[2023-04-10] MEDS: LACTATED RINGERS 1,000 ML 42 ML IV ×2 (08:00→09:42)
--- NOTE | 2023-04-10 08:27 | PM.PREOP ---
Pre-operative Note Interval Note History & Physical reviewed/Exam performed by Physician: Yes Changes to H&P: No
[2023-04-10] MEDS: CEFAZOLIN 2 GM/100 ML PREMIX 100 ML IV (08:45)
[2023-04-10] MEDS: TRANEXAMIC ACID 1,000 MG VIAL 2000 MG INJ ×2 (09:00→09:52)
--- NOTE | 2023-04-10 09:11 | SUR.OPER ---
Supine on padded OR bed, head on pillow, arms secured on padded arm boards at <90 degrees abduction, legs uncrossed, safety belt at abdomen, tape over blanket over lower right leg. Left leg secured into De[employer] positioner with padding and coban
[2023-04-10] MEDS: MORPHINE 4 MG/ML INJ INJ (09:51)
[2023-04-10] MEDS: BUPIVACAINE 0.25% (PF) 60 ML, EPINEPHrine 0.3 MG INJ (09:51)
--- NOTE | 2023-04-10 10:18 | PM.OP.1 ---
Operative Date/Time/Diagnoses Date of procedure: 04/10/23 Time of procedure: 10:00 Pre-op diagnosis: Left knee osteoarthritis Post-op diagnosis: same Procedure & Clinicians Procedure: Left knee medial unicompartmental arthroplasty Same procedure as scheduled: Yes Indications: The patient has had progressively worsening left knee pain with radiographic changes consistent with medial compartment arthritis. Non-operative management has failed and the patient has requested partial knee replacement. The risks, benefits and alternatives to surgery were discussed with the patient prior to proceeding. Risks discussed included, but were not limited to, failure to relieve pain, stiffness, infection, nerve damage, deep venous thrombosis, pulmonary embolism, stroke, coma, heart attack, permanent paralysis and , as well as the potential need for eventual revision of the prosthetic. Surgeon: Mo Dick Burnishing Machine Operator: Darin Lombardo Click Yes if Unassisted: No Anesthesia Type: General and Local Operative Notes Findings: Moderately severe medial compartment osteoarthritis with posterior root tear of the medial meniscus. Closure Type: primary Specimen(s): none sent Prosthetic devices, grafts, tissues, transplants, or devices: Implants used in this procedure were manufactured by the [employer] and included a Journey II unicompartmental arthroplasty with a size 5 left medial Oxinium femoral component, a size 5 left medial tibial base plate and a 9 mm cross-linked polyethylene tibial insert. Applied: implant(s) Estimated Blood Loss (mL): 25 Blood products transfused: none Tourniquet time (min): 41 Procedure in detail: The patient was seen in the pre-operative area, where the left knee was identified as the operative site and this was marked with my initials. The patient received pre-operative antibiotics, and was taken to the operating room and placed on the operative table in the supine position. After satisfactory anesthesia, a full stack python developer out was performed. The left leg was encircled with a tourniquet about the proximal thigh, and the leg was prepared from the toes to the tourniquet with ChloroPrep in the usual fashion and draped through sterile drapes. The leg was elevated and exsanguinated with Eschmark bandage and the tourniquet inflated to 250 mmHg pressure. The knee was approached through an approximately 10 cm incision medial to the patella and patellar tendon and carried into the knee through a mid vastus arthrotomy. The anterior osteophytes and soft tissues were removed. The external guide was used to take the tibial cut after confirming the depth of cut and slope of cut. The blocks were used to check gaps in flexion and extension and a 9 mm guide was used to make the distal femoral cut in extension. The femur was sized, the appropriate guide was applied and the lug holes drilled through the guide. The posterior and chamfer cuts were then created. The meniscus was then fully removed. The posterior capsule was injected with part of a mixture of 60 ml 0.25% Marcaine mixed with 20 ml Exparel and 4 mg of morphine for post-operative pain control. The remainder of this mixture was injected into the capsule and subcutaneous tissues during cement curing. The tibia was sized in the appropriate trial placed. The lug holes were drilled through the trial. A trial femur was placed and then a trial insert. With a 9 mm insert and a 2 mm additional gap stick placed the knee had full range of motion with excellent stability. The appropriate prosthetics were opened. Bone was treated with pulsatile lavage and dried with a sponge. Cement was impacted onto the bone and the prosthetics placed. Excess cement was removed during and after cement curing. After confirming there was no additional cement posteriorly, the final tibial insert was placed. The wound was then copiously irrigated with pulsatile lavage and the tourniquet deflated. Hemostasis was obtained with electrocautery. The capsule was closed with interrupted # 2 polyester sutures and a running 0 Vicryl for the muscular extension. The subcutaneous layer was closed with 3-0 Vicryl, and the skin with a running 3-0 V-Lock suture and Dermabond. An Aquacel Ag dressing was applied and the patient was taken to recovery having tolerated the procedure well. The services of a skilled surgical appliances salesperson were required during this procedure to provide positioning, exposure and retraction to protect vital structures. Without the services of Mr. Lombardo, the procedure could not have gone forward in a safe, expedient fashion. Complications: none Post-operative Condition: stable Disposition: PACU Plan for aftercare: The patient will be discharged to home today. She will follow up at my office in 10-14 days. Discharge prescriptions have been sent for oxycodone and she has been instructed in the use of Tylenol and ibuprofen for additional pain control and low-dose aspirin for DVT prophylaxis.
[2023-04-10] MEDS: ONDANSETRON 4 MG/2 ML INJ IV ×2 (10:20→11:59)
[2023-04-10] MEDS: OXYCODONE/ACETAMINOPHEN 5/325 TABLET 1 TAB PO ×2 (10:26→10:56)
[2023-04-10] MEDS: fentaNYL 100 MCG/2 ML INJ IV (10:28)
[2023-04-10] MEDS: IBUPROFEN 600 MG TABLET PO (11:21)
[2023-04-10] MEDS: METOCLOPRAMIDE 10 MG/2 ML INJ IV (12:28)
--- NOTE | 2023-04-10 12:32 | SUR.PHASEII ---
medicated with reglan for nausea. sipping on earl stacia.
--- NOTE | 2023-04-10 13:02 | SUR.PHASEII ---
1220 Patient dressed but reported nausea worsening. Dr. Martínez notified and he gave a verbal order for Reglan. Reglan given, PO intake provided. 1250 Patient reported nausea improved. Condition stable. Discharged without difficulty.
== END 2023-04-10 12:49 | disposition home or self-care (01) ==
PROVIDERS: PCP Family Medicine; Referring Provider Orthopaedic Surgery; Visit Provider Orthopaedic Surgery
PROC: (CPT 27446; principal; 2023-04-10 08:45)
DX: M17.12 Unilateral primary osteoarthritis, left knee (principal)
CPT/HCPCS: 27446; 73560; C1776; C1713; J0171; J0690; J1100; J1170; J2270; J2405; J2704; J2765; J3010

== ENCOUNTER 2023-06-22 06:30 | Emergency (ER) | payer MEDICARE, OTHER, SELFPAY ==
[2023-06-22 06:37] VITALS: BP 176/81; PULSE 94; RESP 18; TEMP 36; O2SAT 96; BMI 28.3
--- NOTE | 2023-06-22 07:00 | ED_ITS ---
HPI - Extremity Problem General Chief complaint: Extremity Problem,Nontraumatic Stated complaint: Left knee pain, post op Time Seen by Provider: 06/22/23 07:00 Source: patient Mode of arrival: Ambulatory History of Present Illness HPI Narrative: 77-year-old female former smoker with history of hyperlipidemia, GERD, chronic neck and back pain presents with her for evaluation of a left knee which has become red and painful in the absence of injury. On April 10 she had a partial replacement. She states for the past 3 days or so she is been having a bit more pain and noted a bit of swelling around her kneecap. She denies any tr auma or injury. She states that she is been increasing her activity some but denies any specific or memorable moment where she felt something abnormal happened. She denies systemic complaints such as fever or chills. She denies any dizziness, weakness or lightheadedness. Related Data Home Medications Medication Instructions Recorded Confirmed fluticasone propionate 50 1 spray intranasal DAILY PRN 06/09/18 06/03/23 mcg/actuation nasal Allergy Symptoms spray,suspension (Flonase Allergy Relief) Calcium 500/ D 1000 1 tab PO DAILY 12/03/19 06/03/23 Women's Multivitamin 1 tab PO DAILY 12/03/19 06/03/23 famotidine 10 mg tablet 10 mg PO DAILY 05/09/20 06/03/23 psyllium husk 3.4 gram/5.4 gram 1 tbsp PO BID 05/09/20 06/03/23 oral powder (Metamucil) Previous Rx's Medication Instructions Recorded cyclobenzaprine 10 mg tablet 10 mg PO BEDTIME PRN Spasms #30 05/19/21 tabs acetaminophen 325 mg tablet 650 mg PO Q6H PRN Fever/Mild Pain 04/10/23 (1-3) #250 tabs aspirin 81 mg tablet,delayed 81 mg PO BID #84 tabs 04/10/23 release ibuprofen 600 mg tablet 600 mg PO Q6HR PRN Fever/Mild Pain 04/10/23 (1-3) #250 tabs ondansetron HCl 4 mg tablet 4 mg PO Q6H PRN nausea and 04/10/23 vomiting #10 tabs oxycodone 5 mg tablet 5 mg PO Q4HR #40 tabs 04/10/23 gabapentin 300 mg capsule 600 mg PO DAILY #90 caps 06/14/23 pravastatin 40 mg tablet 40 mg PO DAILY #90 tabs 06/14/23 Allergies Allergy/AdvReac Type Severity Reaction Status Date / Time omeprazole Allergy Mild Itching in Verified 06/03/23 11:46 feet piroxicam Allergy Mild hives Verified 06/03/23 11:46 alendronate sodium Allergy Unknown ITCHING Verified 06/03/23 11:46 [From FOSAMAX] iodine [IODINE] Allergy Unknown ITCHING Verified 06/03/23 11:46 Sulfa (Sulfonamide Allergy Unknown ITCHING Verified 06/03/23 11:46 Antibiotics) Review of Systems Review of Systems Narrative: GENERAL: Denies chills, fatigue, malaise, fever, sweats. HEENT: Denies sinus pain, ear pain, sore throat, difficulty swallowing, dizziness. RESPIRATORY: Denies dyspnea, cough, wheezing, hemoptysis, sputum. CARDIOVASCULAR: Denies chest pain, palpitations, orthopnea, edema, GASTROINTESTINAL: Denies nausea, vomiting, abdominal pain, diarrhea, constipation, melena. : Denies dysuria, frequency, incontinence, hematuria, urinary retention. MUSCULOSKELETAL: See HPI SKIN: Denies rash, skin lesions, or other NEUROLOGIC: Denies weakness, headache, numbness, change in speech, confusion, seizures, incoordination. PSYCHIATRIC: No concerning psychosocial issues. 12 point review of systems is negative except for those stated above Patient History Medical History Allergy (1989) Folliculitis Hearing loss (1959) Hyperlipidemia (~2011) Low back pain (2016) Medicare annual wellness visit, subsequent Metatarsalgia Renal cyst (Unknown) Rosacea (2013) Sciatica (Unknown) Shoulder pain (1987) Urinary incontinence (2017) Well adult exam Surgical History History of tubal ligation Hx of mastoidectomy Hx of tonsillectomy Status post cholecystectomy Family History Child Mental health problem Father Mental health problem Social History household members: spouse Smoking Status: Former smoker Tobacco: How many years used: 10 alcohol intake: former substance use type: does not use Smoking Status: Former smoker tobacco type: cigarettes alcohol intake frequency: 0-2 drinks per day Substance Use Type: does not use Exam Narrative Exam Narrative: GEN: AOx3 and in mild distress EYES: Pupils are equal, round, and reactive to light and accommodation. Extraoccular muscles are intact bilaterally. There is no subconjunctival hemorrhage or exudate. CHEST: Lungs are clear to auscultation bilaterally and free of wheezes, rales, or rhonchi. Heart rate is regular rhythm, there are no murmurs, clicks, rubs, or gallops. There is no chest wall tenderness. ABD: Abdomen is soft and nontender. There is no guarding or rebound. Bowel sounds are normal in all 4 quadrants. There is no mass or organomegaly. EXT: Full painless range of motion of left knee, incision remains clean, dry and intact, no erythema or warmth, no pain on passive or active range of motion, no obvious ligamentous laxity, very minimal swelling on the superior medial pole of the patella, low suspicion for infectious process SKIN: Warm, pink, and dry. No erythema or rash Initial Vital Signs Initial Vital Signs: Vital Signs Temperature 96.8 F L 06/22/23 06:37 Pulse Rate 94 H 06/22/23 06:37 Respiratory Rate 18 06/22/23 06:37 Blood Pressure 176/81 H 06/22/23 06:37 Pulse Oximetry 96 06/22/23 06:37 Oxygen Delivery Method Room Air 06/22/23 06:37 Course Orders Ordered: ED Orders 06/22/23 07:03 XR knee LT 3V Stat Vital Signs Vital signs: Vital Signs - 8 hr 06/22/23 06:37 Temperature 96.8 F L Pulse Rate 94 H Respiratory Rate 18 Blood Pressure 176/81 H Pulse Oximetry 96 Oxygen Delivery Method Room Air MDM - Extremity (Nontraumatic) MDM Narrative Medical decision making narrative: [77] year old patient presents with left knee pain in the absence of injury or systemic complaints Multiple etiologies for patient's symptoms considered including, but not limited to: [Inflammation versus infectious process versus other] Prior Charts reviewed in our EMR Primary Historian: patient Imaging reviewed: Knee x-ray demonstrates no obvious abnormality Patient with reassuring history and physical exam, very minimal if any knee swelling, no redness or warmth, incision is clean, dry and intact, full painless range of motion. We did discuss the utility of labs but quickly agreed that there is low likelihood that this would change the disposition. Very low likelihood of septic arthritis given her history and physical exam. I discussed return precautions which include but are not limited to increased pain, swelling, redness, systemic complaints such as fever, chills, nausea and vomiting. She plans to contact her orthopedics office on Saturday. Questions answered to her satisfaction. Findings and discharge diagnosis discussed with patient/family followed by verbalization of understanding Return precautions discussed with patient/family whom verbalize understanding of diagnosis and plan Discharge Plan Departure Patient Disposition: Home Clinical Impression: Acute knee pain, Encounter for subsequent annual wellness visit in Medicare patient Instructions: DI for Knee Pain Activity Restrictions/Additional Instructions: *You have been diagnosed with [left knee pain. As we discussed your history and physical exam are very reassuring and there is no obvious sign of infection. The x-ray has no obvious abnormality but as we discussed we are waiting on the official read from Radiology.] *What to do: *Please continue to take your regular medications as directed. *Please follow up with your primary orthopedic provider in 2-3 days, call for an appointment. Let them know you were seen in the Emergency Department and that we ask that you be seen in follow up. We will electronically transmit a record of today's note if your PCP is in our system *Return to Emergency Department if you should have any new, worsening or concerning symptoms, such as [fever greater than 101 F, shaking chills, worsening pain, persistent vomiting or other bothersome symptoms] Radiographic study has been interpreted by an emergency physician. The official diagnosis by radiology will be performed within the next 24 hours and should there be any change in outcome we will notify you of how to proceed. Prescriptions: No Action fluticasone propionate [Flonase Allergy Relief] 50 mcg/actuation spray,suspension 1 spray NASAL DAILY PRN (Reason: Allergy Symptoms) gabapentin 300 mg capsule 600 mg PO DAILY Qty: 90 0RF Rx Instructions: take 2 capsules by mouth every morning pravastatin 40 mg tablet 40 mg PO DAILY Qty: 90 1RF Rx Instructions: take 1 tablet by mouth at bedtime cyclobenzaprine 10 mg tablet 10 mg PO BEDTIME PRN (Reason: Spasms) Qty: 30 1RF famotidine 10 mg tablet 10 mg PO DAILY Metamucil 3.4 gram/5.4 gram powder 1 tbsp PO BID Rx Instructions: mix into at least 8 oz of water or juice before administering Calcium 500/ D 1000 1 tab PO DAILY Women's Multivitamin 1 tab PO DAILY acetaminophen 325 mg Tablet 650 mg PO Q6H PRN (Reason: Fever/Mild Pain (1-3)) Qty: 250 0RF aspirin 81 mg Tablet,Delayed Release (Dr/Ec) 81 mg PO BID Qty: 84 0RF ibuprofen 600 mg Tablet 600 mg PO Q6HR PRN (Reason: Fever/Mild Pain (1-3)) Qty: 250 0RF oxycodone 5 mg Tablet 5 mg PO Q4HR Qty: 40 0RF ondansetron HCl 4 mg tablet 4 mg PO Q6H PRN (Reason: nausea and vomiting) Qty: 10 1RF Referrals: Charles Resendiz DO [Primary Care Provider] - Stand Alone Forms: Patient Portal/API
--- NOTE | 2023-06-22 07:03 | DI.RAD.S_ITS ---
PROCEDURE: XR KNEE LT 3V INDICATIONS: knee pain, no injury TECHNIQUE: 3 views of the knee were acquired. COMPARISON: [facility], CR, XR KNEE LT 1TO2V, 04/10/2023, 10:07. FINDINGS: Bones: Postsurgical changes from medial compartment arthroplasty. No acute fracture or dislocation identified. Soft tissues: No joint effusion. No suspicious soft tissue calcifications. IMPRESSION: No acute osseous abnormality. If symptoms persist, follow-up radiographs and/or CT may be helpful for further evaluation. Dictated by: Nash Barlow M.D. on 06/22/2023 at 8:09 Approved by: Nash Barlow M.D. on 06/22/2023 at 8:10
[2023-06-22 08:06] VITALS: BP 148/73; PULSE 71; RESP 12; O2SAT 96
== END 2023-06-22 08:13 | disposition home or self-care (01) ==
PROVIDERS: Emergency Provider Emergency Medicine; PCP Family Medicine
DX: M25.562 Pain in left knee (principal)
CPT/HCPCS: 73562; 99281; 99282

== ENCOUNTER → 2023-08-27 13:14 | Outpatient (CLI) | payer MEDICARE, OTHER, SELFPAY ==
--- NOTE | 2023-08-27 13:15 | DI.MG.S_ITS ---
BILATERAL DIGITAL SCREENING MAMMOGRAM 3D/2D WITH CAD: 08/27/2023 CLINICAL: Routine screening. Comparison is made to exams dated: 07/20/2022 mammogram, 04/03/2021 mammogram, and 10/26/2019 mammogram - [facility]. There are scattered areas of fibroglandular density in both breasts (category b / 25%-50% glandular tissue). Current study was also evaluated with a Computer Aided Detection (CAD) system. No significant masses, calcifications, or other findings are seen in either breast. IMPRESSION: NEGATIVE There is no mammographic evidence of malignancy. A 1 year screening mammogram is recommended. Based on the Tyrer Cuzick model (a risk assessment model) the patient's lifetime risk is 2.2% and her 10 year risk is 2.2%. According to the ACR, ACS, and NCCN guidelines, an annual breast MRI exam along with mammogram is recommended if the patient's lifetime risk is 20% or greater. This exam was interpreted at Station ID: [id number]. NOTE: For mammograms, a report in lay terms will be sent to the patient. Approximately 15% of breast malignancies will not be visualized mammographically. In the management of a palpable breast mass, a negative mammogram must not discourage biopsy of a clinically suspicious lesion. Electronically Signed By: Mami rosen/:08/27/2023 17:27:26 letter sent: Normal Exam ACR BI-RADS Category 1: Negative [id number]
== END ==
PROVIDERS: PCP Family Medicine; Referring Provider Family Medicine; Visit Provider Family Medicine
DX: Z12.31 Encounter for screening mammogram for malignant neoplasm of breast (principal)
CPT/HCPCS: 77063; 77067

== ENCOUNTER → 2023-10-03 12:17 | Outpatient (CLI) | payer MEDICARE, OTHER, SELFPAY ==
--- NOTE | 2023-10-03 12:19 | DI.RAD.S_ITS ---
PROCEDURE: XR SHOULDER RT MIN 2V INDICATIONS: Right shoulder pain in area of AC joint TECHNIQUE: 3 views of the shoulder were acquired. COMPARISON: None. FINDINGS: Bones: No fractures or dislocations. No suspicious bony lesions. Visualized ribs appear intact. Mild acromioclavicular joint osteoarthritis. Soft tissues: No suspicious soft tissue calcifications. IMPRESSION: Mild acromioclavicular joint osteoarthritis. Dictated by: Celena Jackson MD, PhD on 10/03/2023 at 13:21 Approved by: Celena Jackson MD, PhD on 10/03/2023 at 13:22
== END ==
PROVIDERS: PCP Family Medicine; Referring Provider Physician Assistant; Visit Provider Physician Assistant
DX: M25.511 Pain in right shoulder (principal); M19.011 Primary osteoarthritis, right shoulder
CPT/HCPCS: 73030

== ENCOUNTER → 2024-06-12 13:20 | Outpatient (CLI) | payer MEDICARE, OTHER, SELFPAY ==
[2024-06-12 16:06] LABS: Erythrocyte Sedimentation Rate 12 MM/HR (0-20)
[2024-06-13 01:20] LABS: C-Reactive Protein Quant < 0.5 mg/dL (<1.0)
== END ==
PROVIDERS: PCP Family Medicine; Referring Provider Orthopaedic Surgery Adult Reconstructive Orthopaedic Surgery; Visit Provider Orthopaedic Surgery Adult Reconstructive Orthopaedic Surgery
DX: R70.0 Elevated erythrocyte sedimentation rate (principal); R79.82 Elevated C-reactive protein (CRP)
CPT/HCPCS: 36415; 85651; 86140

== ENCOUNTER → 2024-06-17 10:36 | Outpatient (CLI) | payer MEDICARE, OTHER, SELFPAY ==
--- NOTE | 2024-06-17 10:38 | DI.CT.S_ITS ---
PROCEDURE: CT LE LT W CON INDICATIONS: PRESENCE OF LEFT AFTIFICIAL KNEE JOINT TECHNIQUE: Noncontrast 1-1.5 mm axial sections acquired from the mid-patella to the proximal tibia, with coronal and sagittal reformats. COMPARISON: [facility], CR, XR KNEE 4+ VIEWS LEFT, 11/12/2023, 10:51. FINDINGS: Image quality: Excellent. Bones: Postsurgical changes are seen from medial unicompartmental arthroplasty. There is mild posterior tilting of the tibial plateau component relative to the lateral tibial plateau. The tibial plateau component also extends approximately 8 mm posterior to the posterior cortex of the medial tibial plateau. Femoral component appears normally positioned without signs of loosening. Generalized osteopenia. No acute osseous fracture. Currently shallow trochlear groove is seen with mild lateral patellar subluxation. Mild joint space narrowing in the lateral and anterior compartments. Soft tissues: No significant joint effusion. The ligaments and tendons are not well evaluated with CT. The musculature surrounding the knee is normal in bulk. IMPRESSION: 1. Postsurgical changes from medial unicompartmental knee arthroplasty. The tibial component extends approximately 8 mm posterior to the posterior tibial cortex and there is mild posterior tilting of the articular surface of the tibial component. 2. Generalized osteopenia. 3. Mild lateral and anterior compartment osteoarthrosis. Approved by: Nash Hawley M.D. on 06/18/2024 at 9:55
== END ==
PROVIDERS: PCP Family Medicine; Referring Provider Orthopaedic Surgery Adult Reconstructive Orthopaedic Surgery; Visit Provider Orthopaedic Surgery Adult Reconstructive Orthopaedic Surgery
DX: M17.12 Unilateral primary osteoarthritis, left knee (principal); M85.88 Other specified disorders of bone density and structure, other site; Z96.652 Presence of left artificial knee joint
CPT/HCPCS: 73700

== ENCOUNTER 2024-07-08 06:57 | Emergency (ER) | payer MEDICARE, OTHER, SELFPAY ==
[2024-07-08 07:13] VITALS: BP 166/76; PULSE 80; RESP 14; TEMP 36.6; O2SAT 99; BMI 30.1
--- NOTE | 2024-07-08 08:16 | ED_ITS ---
HPI - Extremity Problem General Chief complaint: Extremity Problem,Nontraumatic Stated complaint: cyst on L knee Time Seen by Provider: 07/08/24 08:11 Source: patient Mode of arrival: Ambulatory History of Present Illness HPI Narrative: Patient here with . Complains left knee discomfort. Patient had knee surgery March [address] Dick[address] imaging last month for follow up due to ongoing off and on left knee pain after the surgery. No history of blood clots in legs or lungs. Patient has not had ultrasound of the leg she had left knee arthroplasty with Dr. Dick. History of osteoarthritis. No chest pain or shortness of breath. Patient has been walking on her left leg and knee without any difficulty. Related Data Home Medications Medication Instructions Recorded Confirmed fluticasone propionate 50 1 spray intranasal DAILY PRN 06/09/18 01/14/24 mcg/actuation nasal Allergy Symptoms spray,suspension (Flonase Allergy Relief) Calcium 500/ D 1000 1 tab PO DAILY 12/03/19 01/14/24 Women's Multivitamin 1 tab PO DAILY 12/03/19 01/14/24 psyllium husk 3.4 gram/5.4 gram 1 tbsp PO BID 05/09/20 01/14/24 oral powder (Metamucil) Previous Rx's Medication Instructions Recorded acetaminophen 325 mg tablet 650 mg (2 x 325 mg) PO Q6H PRN 04/10/23 Fever/Mild Pain (1-3) #250 tabs aspirin 81 mg tablet,delayed 81 mg PO BID #84 tabs 04/10/23 release ibuprofen 600 mg tablet 600 mg PO Q6HR PRN Fever/Mild Pain 04/10/23 (1-3) #250 tabs cyclobenzaprine 10 mg tablet 10 mg PO BEDTIME PRN Spasms #60 12/19/23 tabs pravastatin 40 mg tablet 40 mg PO DAILY #90 tabs 12/19/23 nortriptyline 10 mg capsule 10 mg PO BEDTIME #30 caps 01/14/24 gabapentin 300 mg capsule 600 mg (2 x 300 mg) PO DAILY #180 01/20/24 caps Allergies Allergy/AdvReac Type Severity Reaction Status Date / Time omeprazole Allergy Mild Itching in Verified 07/08/24 07:17 feet piroxicam Allergy Mild hives Verified 07/08/24 07:17 alendronate sodium Allergy Unknown ITCHING Verified 07/08/24 07:17 [From FOSAMAX] iodine [IODINE] Allergy Unknown ITCHING Verified 07/08/24 07:17 Sulfa (Sulfonamide Allergy Unknown ITCHING Verified 07/08/24 07:17 Antibiotics) Review of Systems Review of Systems Narrative: GENERAL: negative chills, fatigue, malaise, fever, sweats. HEENT: negative sinus pain, ear pain, sore throat RESPIRATORY: negative dyspnea, cough CARDIOVASCULAR: negative chest pain, palpitations GASTROINTESTINAL: negative nausea, vomiting, abdominal pain : negative dysuria, frequency, hematuria MUSCULOSKELETAL: Positive muscle or bony pain SKIN: negative rash, skin lesions NEUROLOGIC: negative weakness, numbness ROS Unobtainable: All systems reviewed & are unremarkable except as noted in HPI and below Patient History Medical History TMJ arthralgia Borderline hypertension Medicare annual wellness visit, subsequent Well adult exam Folliculitis Metatarsalgia Low back pain (2016) Hyperlipidemia (~2011) Sciatica (Unknown) Renal cyst (Unknown) Rosacea (2012) Allergy (1989) Shoulder pain (1987) Hearing loss (1958) Urinary incontinence (2016) Surgical History History of tubal ligation Hx of mastoidectomy Hx of tonsillectomy Status post cholecystectomy Family History Child Mental health problem Father Mental health problem Social History household members: spouse Smoking Status: Former smoker Tobacco: How many years used: 10 alcohol intake: former substance use type: does not use Smoking Status: Former smoker tobacco type: cigarettes alcohol intake frequency: 0-2 drinks per day Substance Use Type: does not use Exam Narrative Exam Narrative: GENERAL: in no distress, not toxic not dyspneic HEAD: Normocephalic. EYES: Pupils equal round ENT: Mucous membranes moist. NECK: Trachea midline. CARDIOVASCULAR: Regular rate and rhythm RESPIRATORY: Clear to auscultation. Breath sounds equal bilaterally. No wheezes, rales, or rhonchi. EXTREMITIES: No gross deformities. Examination left lower extremity. Knee to toes exposed. Nontender knee. Patient able to fully extend knee. Without any difficulty. Able to flex knee past 90?. No palpable mass or cyst behind the knee. Homans test negative Mccormick test negative. No palpable cords to the calves. Calf is warm soft and pink. No compartment syndrome. Strong pedal pulse foot is warm soft and pink brisk cap refills light touch intact to foot and toes and leg. NEURO: AOx4. SKIN: Warm and dry PSYCH: Not anxious, is cooperative Initial Vital Signs Initial Vital Signs: Vital Signs Temperature 97.8 F 07/08/24 07:13 Pulse Rate 80 07/08/24 07:13 Respiratory Rate 14 07/08/24 07:13 Blood Pressure 166/76 H 07/08/24 07:13 Pulse Oximetry 99 07/08/24 07:13 Oxygen Delivery Method Room Air 07/08/24 07:13 Course Orders Ordered: ED Orders 07/08/24 08:16 US perip venous low extrem lt Stat Vital Signs Vital signs: Vital Signs - 8 hr 07/08/24 07:13 Temperature 97.8 F Pulse Rate 80 Respiratory Rate 14 Blood Pressure 166/76 H Pulse Oximetry 99 Oxygen Delivery Method Room Air MDM - Extremity (Nontraumatic) Imaging Data US - DVT: Radiologist's Impression: [place] [address] Ultrasound Report Signed Patient: Chantel Hsu MR#: [id number] : 1945 Acct:[id number] Age/Sex: 78 / F Date of Service: 07/08/24 Loc: ED Accession Number: [id number] Procedure: [facility] venous low extrem lt Ordering Provider: Ruiz Vo MD PROCEDURE: US PERIP VENOUS LOW EXTREM LT INDICATIONS: left knee swelling/leg pain TECHNIQUE: Real-time imaging, as well as color and pulse Doppler interrogation, were performed of the lower extremity deep veins from the inguinal ligament to the popliteal manny a, with documentation of the visualized calf veins. COMPARISON: None. FINDINGS: The common femoral, femoral, popliteal, and the visualized calf veins are normally compressible, and free of intraluminal thrombus. Color and pulse Doppler demonstrate normal phasic intraluminal flow. There is normal augmentation response to distal compression maneuver. IMPRESSION: Negative left lower extremity duplex venous ultrasound for DVT. Dictated by: Harley Randall M.D. on 07/08/2024 at 10:04 Approved by: Harley Randall M.D. on 07/08/2024 at 10:04 [facility] Narrative Medical decision making narrative: Patient here with . Complains left knee discomfort. Patient had knee surgery March [address] imaging last month for follow up due to ongoing off and on left knee pain after the surgery. No history of blood clots in legs or lungs. Patient has not had ultrasound of the leg she had left knee arthroplasty with Dr. Dick. History of osteoarthritis. No chest pain or shortness of breath. Patient has been walking on her left leg and knee without any difficulty. After history and exam, exam is reassuring. No black or indicated at this time. Ultrasound of the left leg will be ordered. [facility] Medical records reviewed: CT imaging done June 17, 2024 for left knee. Differential considered: Includes but not limited to DVT SVT Mann's cyst osteoarthritis Lab Test results independently reviewed as above. Pertinent findings: None indicated at this time Imaging studies independently reviewed: Ultrasound left leg no acute finding Consultations: Patient sees Dr. Dee Treatments: None indicated at this time Re-evaluations: 10:12 a.m.. Patient up and walking in the room without difficulty. Updated patient and results. She does see Dr. Dee for Orthopedics. She will call us today for follow up and review today's results and exam. She agrees with treatment plan and follow up with Orthopedics. Return precautions reviewed. She desires discharge home. Reviewed with them that swelling of the knee can occur after surgery at any time. Discussion: Appropriate for discharge home exam is reassuring imaging reassuring. No blood work indicated. Return precautions reviewed with patient . She has established orthopedics already. Nontoxic at discharge. She desires discharge home. Likely pain swelling postoperatively can occur with weather changes or activity. I did review this with patient and . They do understand. Diagnosis: Chronic knee pain Discharge Plan Departure Patient Disposition: Home Clinical Impression: Chronic knee pain Qualifiers: Laterality: left Qualified Code(s): M25.562 - Pain in left knee Instructions: DI for Knee Pain Activity Restrictions/Additional Instructions: Please see your orthopedic doctor this week for re-evaluation and and to inform that you had ultrasound of the leg and knee today. No blood clots or cyst was seen. Return if worse or for any questions or concerns. Today's exam and imaging studies are reassuring. Prescriptions: No Action fluticasone propionate [Flonase Allergy Relief] 50 mcg/actuation spray,suspension 1 spray NASAL DAILY PRN (Reason: Allergy Symptoms) gabapentin 300 mg capsule 600 mg PO DAILY Qty: 180 1RF Rx Instructions: take 2 capsules by mouth every morning pravastatin 40 mg tablet 40 mg PO DAILY Qty: 90 3RF Rx Instructions: take 1 tablet by mouth at bedtime cyclobenzaprine 10 mg tablet 10 mg PO BEDTIME PRN (Reason: Spasms) Qty: 60 1RF nortriptyline 10 mg capsule 10 mg PO BEDTIME Qty: 30 1RF Metamucil 3.4 gram/5.4 gram powder 1 tbsp PO BID Rx Instructions: mix into at least 8 oz of water or juice before administering Calcium 500/ D 1000 1 tab PO DAILY Women's Multivitamin 1 tab PO DAILY acetaminophen 325 mg Tablet 650 mg PO Q6H PRN (Reason: Fever/Mild Pain (1-3)) Qty: 250 0RF aspirin 81 mg Tablet,Delayed Release (Dr/Ec) 81 mg PO BID Qty: 84 0RF ibuprofen 600 mg Tablet 600 mg PO Q6HR PRN (Reason: Fever/Mild Pain (1-3)) Qty: 250 0RF Referrals: Charles Resendiz DO [Primary Care Provider] - Karlos Linn MD [Physician] - Stand Alone Forms: Patient Portal/API
--- NOTE | 2024-07-08 08:20 | PC.NURSE ---
Pt has full range of motion in left knee. Pt reports being told she had a cyst behind her knee and ortho MD stated she needs another knee surgery (last knee surgery February 2023). Pt states pain is worse on palpation. Pt states she feels tightness and does not think she can tolerate the pain until her next follow up
[2024-07-08 10:21] VITALS: PULSE 72; RESP 16; O2SAT 99
== END 2024-07-08 10:24 | disposition home or self-care (01) ==
PROVIDERS: Emergency Provider Emergency Medicine; PCP Family Medicine
DX: M25.562 Pain in left knee (principal); G89.29 Other chronic pain
CPT/HCPCS: 93971; 99282; 99283

== ENCOUNTER → 2024-07-20 10:20 | Outpatient (CLI) | payer MEDICARE, OTHER, SELFPAY ==
[2024-07-20 11:16] LABS: Add Manual Diff / Slide Review NO; Basophils Absolute Auto 0 /uL (0-100); Basophils Percent Auto 0.8 % (0-2); Eosinophils Absolute Auto 100 /uL (0-450); Eosinophils Percent Auto 1.2 % (2-4); Hematocrit 42.5 % (36-46); Hemoglobin 14.5 g/dL (12.0-16.0); Lymphocytes Absolute Auto 1000 /uL (1100-4500); Lymphocytes Percent Auto 21.2 % (25-40); Mean Corpuscular HGB Conc 34.2 % (30-36); Mean Corpuscular Hemoglobin 33.1 PG (26-34); Monocytes Absolute Auto 300 /uL (0-900); Neutrophils Absolute Auto 3400 /uL (1500-7000); Neutrophils Percent Auto 69.8 % (50-75); Platelet Count 278 X10^3/uL (150-400); Red Blood Cell Count 4.38 X10^6/uL (4.0-5.2); Red Cell Distribution Width 13.3 % (11.6-14.8); White Blood Cell Count 4.9 X10^3/uL (4.5-11.0)
[2024-07-20 11:53] LABS: Alanine Aminotransferase 20 IU/L (<35); Albumin 4.5 g/dL (3.5-5.0); Albumin Globulin Ratio 1.7 (1.0-2.8); Alkaline Phosphatase 54 U/L (38-126); Aspartate Aminotransferase 29 IU/L (14-36); BUN Creatinine Ratio 17.1 (6-22); Bilirubin Total 0.7 mg/dL (0.2-1.3); Blood Urea Nitrogen 13 mg/dL (7-17); Calcium 9.7 mg/dL (8.4-10.2); Carbon Dioxide 27 mmol/L (22-32); Chloride 104 mmol/L (98-107); Cholesterol 179 mg/dL (140-199); Estimated Glomerular Filt Rate > 60 mL/min (>60); Globulin 2.6 g/dL (1.7-4.1); Glucose 107 mg/dL (80-110); HDL Cholesterol 72 mg/dL (40-60); HEMOLYSIS < 15 (0-50); LDL Cholesterol Calculated 79 mg/dL (<100); Potassium 5.3 mmol/L (3.4-5.1); Sodium 138 mmol/L (137-145); Total Protein 7.1 g/dL (6.3-8.2); Triglycerides 139 mg/dL (35-150)
[2024-07-20 12:16] LABS: TSH w/ Reflex to FT4 1.39 uIU/mL (0.47-4.68)
== END ==
PROVIDERS: PCP Family Medicine; Referring Provider Family Medicine; Visit Provider Family Medicine
DX: Z00.00 Encounter for general adult medical examination without abnormal findings (principal); M25.569 Pain in unspecified knee; E78.5 Hyperlipidemia, unspecified; G89.29 Other chronic pain; Z87.39 Personal history of other diseases of the musculoskeletal system and connective tissue; K21.9 Gastro-esophageal reflux disease without esophagitis
CPT/HCPCS: 36415; 80053; 80061; 84443; 85025

== ENCOUNTER → 2024-09-12 12:43 | Outpatient (CLI) | payer MEDICARE, OTHER, SELFPAY ==
--- NOTE | 2024-09-12 | DI.MG.S_ITS ---
BILATERAL DIGITAL SCREENING MAMMOGRAM 3D/2D WITH CAD: 09/12/2024 CLINICAL: Routine screening. Comparison is made to exams dated: 08/27/2023 mammogram, 07/20/2022 mammogram, and 04/03/2021 mammogram - [facility]. There are scattered areas of fibroglandular density (category b / 25%-50% glandular tissue). Current study was also evaluated with a Computer Aided Detection (CAD) system. No significant masses, calcifications, or other findings are seen in either breast. There has been no significant interval change. IMPRESSION: NEGATIVE There is no mammographic evidence of malignancy. A 1 year screening mammogram is recommended. Based on the Tyrer Cuzick model (a risk assessment model) the patient's lifetime risk is 2.0% and her 10 year risk is 0.0%. According to the ACR, ACS, and NCCN guidelines, an annual breast MRI exam along with mammogram is recommended if the patient's lifetime risk is 20% or greater. This exam was interpreted at Station ID: [id number]. NOTE: For mammograms, a report in lay terms will be sent to the patient. Approximately 15% of breast malignancies will not be visualized mammographically. In the management of a palpable breast mass, a negative mammogram must not discourage biopsy of a clinically suspicious lesion. Electronically Signed By: Armen naylor/polina:09/12/2024 14:13:02 letter sent: Normal Exam ACR BI-RADS Category 1: Negative
== END ==
PROVIDERS: PCP Family Medicine; Referring Provider Family Medicine; Visit Provider Family Medicine
DX: Z12.31 Encounter for screening mammogram for malignant neoplasm of breast (principal)
CPT/HCPCS: 77063; 77067

== ENCOUNTER → 2024-09-28 10:01 | Outpatient (CLI) | payer MEDICARE, OTHER, SELFPAY ==
--- NOTE | 2024-09-28 10:30 | DI.RAD.S_ITS ---
PROCEDURE: XR DEXA AXIAL SKELETON INDICATIONS: eval osteopenia COMPARISON: [facility], CR, XR DEXA AXIAL SKELETON, 09/26/2022, 15:55. FINDINGS: Lumbar Spine: Bone mineral density is 0.797 g/cm2, T score -2.3, previously -2.0. Left Hip: Bone mineral density is 0.702 g/cm2, T score -2.0, previously -1.5. Left Femoral Neck: Bone mineral density 0.560 g/cm2, T score -2.6, previously -2.1. Right Hip: Bone mineral density is 0.674 g/cm2, T score -2.2, previously -2.0. Right Femoral Neck: Bone mineral density 0.631 g/cm2, T score -2.0, previously -2.0. Fracture Risk Calculation (when applicable): 10-year fracture risk of a major osteoporotic fracture 14 percent and of a hip fracture 3.5 percent. (T score greater or equal to -1.0 to: NORMAL) (T score from -1.1 to -2.4: OSTEOPENIA) (T score less than or equal to -2.5: OSTEOPOROSIS) IMPRESSION: Worsening osteoporosis in the left femoral neck Follow-up guidelines as follows: Osteoporosis: Consider a repeat DEXA and Vertebral Fracture Assessment (VFA) exam in 2 years or sooner if medically necessary, to reassess this patient's status. Osteopenia: Consider a repeat DEXA in 2-3 years to reassess this patient's status, or if there is a new clinical indication. Normal: Consider a repeat DEXA in 5 years or sooner, or if there is a new clinical indication. All treatment decisions require clinical judgment and consideration of individual patient factors, including patient preferences, comorbidities, previous drug use, risk factors not captured in the FRAX model (e.g., frailty, falls, vitamin D deficiency, increased bone turnover, interval significant decline in bone density ) and possible under- or over-estimation of fracture risk by FRAX. In addition, the NOF Guide recommends that FDA-approved medical therapies be considered in postmenopausal women and men age >= 50 years with a: * Hip or vertebral (clinical or morphometric) fracture * T-score of <=-2.5 at the spine or hip * Ten-year fracture probability by FRAX of >= 3% for hip fracture or >=20% for major osteoporotic fracture. People with diagnosed cases of osteoporosis or at high risk for fracture should have regular bone mineral density tests. For patients eligible for Medicare, routine testing is allowed once every 2 years. The testing frequency can be increased to one year for patients who have rapidly progressing disease, those who are receiving or discontinuing medical therapy to restore bone mass, or have additional risk factors. Approved by: Karlos Nolasco M.D. on 09/28/2024 at 15:40
== END ==
LOC: RAD 10:02
PROVIDERS: PCP Family Medicine; Referring Provider Family Medicine; Visit Provider Family Medicine
DX: M81.0 Age-related osteoporosis without current pathological fracture (principal); Z87.39 Personal history of other diseases of the musculoskeletal system and connective tissue
CPT/HCPCS: 77080

== ENCOUNTER → 2025-01-14 10:57 | Outpatient (CLI) | payer MEDICARE, OTHER, SELFPAY ==
--- NOTE | 2025-01-14 10:59 | DI.RAD.S_ITS ---
PROCEDURE: XR CERVICAL SPINE 2V OR 3V INDICATIONS: eval neck pain TECHNIQUE: Three views of the cervical spine were acquired. COMPARISON: [facility], CR, XR CERVICAL SPINE 2V OR 3V, 05/19/2021, 13:40. FINDINGS: Bones: No acute fractures or dislocations to the T1 level. The lateral masses of C1 appear intact on the odontoid view. No suspicious bony lesions. Multilevel disc space narrowing and degenerative endplate changes. Multilevel uncovertebral joint and facet hypertrophy. Soft tissues: No prevertebral soft tissue swelling. IMPRESSION: Moderate multilevel cervical spondylosis. Approved by: Nash Hawley M.D. on 01/15/2025 at 15:21
== END ==
PROVIDERS: PCP Family Medicine; Referring Provider Family Medicine; Visit Provider Family Medicine
DX: M47.812 Spondylosis without myelopathy or radiculopathy, cervical region (principal); M54.2 Cervicalgia
CPT/HCPCS: 72040

== ENCOUNTER → 2025-02-21 09:09 | Outpatient (CLI) | payer MEDICARE, OTHER, SELFPAY | PROVIDERS: PCP Family Medicine; Visit Provider Registered Nurse | DX: R30.0 Dysuria (principal) | CPT/HCPCS: 87077; 87086 ==

== ENCOUNTER → 2025-03-08 11:58 | Outpatient (CLI) | payer MEDICARE, OTHER, SELFPAY | PROVIDERS: PCP Family Medicine; Visit Provider Nurse Practitioner Family | DX: N89.8 Other specified noninflammatory disorders of vagina (principal) | CPT/HCPCS: 87210 ==

== ENCOUNTER 2025-03-19 15:02 | Emergency (ER) | payer MEDICARE, OTHER, SELFPAY ==
[2025-03-19] VITALS (12 sets, daily range): BP systolic 167–192; BP diastolic 73–96; PULSE 77–112; RESP 17–25; TEMP 36.8; O2SAT 93–99; BMI 30.9
--- NOTE | 2025-03-19 15:07 | DI.RAD.S_ITS ---
PROCEDURE: XR CHEST 1V INDICATIONS: chest pain TECHNIQUE: One view of the chest was acquired. COMPARISON: None. FINDINGS: Surgical changes and devices: None. Lungs and pleura: Mildly low lung volumes. No focal consolidation. No pleural effusions or pneumothorax. Mediastinum: Mediastinal contours appear normal. Heart size is normal. Bones and chest wall: No suspicious bony lesions. Overlying soft tissues appear unremarkable. IMPRESSION: No acute cardiopulmonary abnormality is seen. Approved by: Nash Hawley M.D. on 03/19/2025 at 16:26
--- NOTE | 2025-03-19 15:12 | EKG_ITS ---
[address] [address] Test Date: 2025-03-19 Pat Name: Chantel Hsu Department: Room: Gender: Female Creative Specialist: BETHEL : 1945 Requested By: Order Number: [id number] Reading MD: Tom Valentine MD Measurements Intervals [place] Rate: 95 P: 57 VT: 152 QRS: 18 QRSD: 82 T: 61 QT: 340 QTc: 427 Interpretive Statements Normal sinus rhythm Low voltage QRS Electronically Signed On 03-19-2025 16:44:16 PDT by Tom Valentine MD
--- NOTE | 2025-03-19 15:21 | ED_ITS ---
HPI - General Adult General Chief complaint: Arrhythmia/Palpitations Stated complaint: irregular heartbeat Time Seen by Provider: 03/19/25 15:15 Source: patient and family Mode of arrival: Ambulatory History of Present Illness HPI narrative: Patient here with . Complains of palpitations and some shortness of breath today that has resolved. Patient was working outside today. She experienced no symptoms at the time. She went in and showered. Then she sat down to rest. She experience skipping beats every 3rd beat it seems like she said then fast heartbeat. Experienced no chest pain no syncope no fainting. No nausea no sweating. It has resolved. Of recently she has had palpitations while eating, as food passes down her throat. She did see a mold chipper in the past just a meet and Greet and to have a mold chipper but never had any heart problems or complaints or cardiac diagnosis. Patient sees primary care doctor Martín. Denies any recent illness. No recent changes in medications. Patient in no distress at this time. Is in normal sinus rhythm rate 95. Related Data Home Medications Medication Instructions Recorded Confirmed fluticasone propionate 50 1 spray intranasal DAILY PRN 06/09/18 03/08/25 mcg/actuation nasal Allergy Symptoms spray,suspension (Flonase Allergy Relief) Calcium 500/ D 1000 1 tab PO DAILY 12/03/19 03/08/25 Women's Multivitamin 1 tab PO DAILY 12/03/19 03/08/25 psyllium husk 3.4 gram/5.4 gram 1 tbsp PO BID 05/09/20 03/08/25 oral powder (Metamucil) Previous Rx's Medication Instructions Recorded acetaminophen 325 mg tablet 650 mg (2 x 325 mg) PO Q6H PRN 04/10/23 Fever/Mild Pain (1-3) #250 tabs ibuprofen 600 mg tablet 600 mg PO Q6HR PRN Fever/Mild Pain 04/10/23 (1-3) #250 tabs cyclobenzaprine 10 mg tablet 10 mg PO BEDTIME PRN Spasms #60 07/20/24 tabs pravastatin 40 mg tablet 40 mg PO DAILY #90 tabs 07/20/24 gabapentin 300 mg capsule 600 mg (2 x 300 mg) PO DAILY #180 01/18/25 caps fluconazole 150 mg tablet 150 mg PO Q3D 2 doses #2 tabs 03/08/25 Allergies Allergy/AdvReac Type Severity Reaction Status Date / Time omeprazole Allergy Mild Itching in Verified 03/19/25 15:16 feet piroxicam Allergy Mild hives Verified 03/19/25 15:16 alendronate sodium Allergy Unknown ITCHING Verified 03/19/25 15:16 [From FOSAMAX] iodine [IODINE] Allergy Unknown ITCHING Verified 03/19/25 15:16 Sulfa (Sulfonamide Allergy Unknown ITCHING Verified 03/19/25 15:16 Antibiotics) Review of Systems Review of Systems Narrative: GENERAL: Negative chills, fatigue, malaise, fever, sweats. HEENT: Negative sinus pain, ear pain, sore throat RESPIRATORY: Negative dyspnea, cough CARDIOVASCULAR: Negative chest pain, positive palpitations GASTROINTESTINAL: Negative vomiting, nausea, abdominal pain : Negative dysuria, frequency, hematuria MUSCULOSKELETAL: Negative muscle or bony pain SKIN: Negative rash, skin lesions NEUROLOGIC: Negative weakness, numbness ROS Unobtainable: All systems reviewed & are unremarkable except as noted in HPI and below Patient History Medical History TMJ arthralgia Borderline hypertension Medicare annual wellness visit, subsequent Well adult exam Folliculitis Metatarsalgia Low back pain (2017) Hyperlipidemia (~2011) Sciatica (Unknown) Renal cyst (Unknown) Rosacea (2012) Allergy (1989) Shoulder pain (1987) Hearing loss (1958) Urinary incontinence (2016) Surgical History History of tubal ligation Hx of mastoidectomy Hx of tonsillectomy Status post cholecystectomy Family History Child Mental health problem Father Mental health problem Social History household members: spouse Tobacco: How many years used: 10 alcohol intake: former substance use type: does not use tobacco type: cigarettes alcohol intake frequency: 0-2 drinks per day Exam Narrative Exam Narrative: GENERAL: in no distress, not toxic not dyspneic HEAD: Normocephalic. EYES: Pupils equal round ENT: Mucous membranes moist. NECK: Trachea midline. CARDIOVASCULAR: Regular rate and rhythm RESPIRATORY: Clear to auscultation. Breath sounds equal bilaterally. No wheezes, rales, or rhonchi. GASTROINTESTINAL: Abdomen soft, non-tender EXTREMITIES: No gross deformities. BACK: No flank tenderness. NEURO: AOx4. Clear speech SKIN: Warm and dry PSYCH: Not anxious, is cooperative Initial Vital Signs Initial Vital Signs: Vital Signs Temperature 98.2 F 03/19/25 15:05 Pulse Rate 106 H 03/19/25 15:05 Respiratory Rate 17 03/19/25 15:05 Blood Pressure 189/96 H 03/19/25 15:05 Pulse Oximetry 94 03/19/25 15:05 Oxygen Delivery Method Room Air 03/19/25 15:05 Course Orders Ordered: ED Orders 03/19/25 15:07 XR chest 1V Stat EKG-12 Lead Stat 03/19/25 15:19 Complete Blood Count AUTO DIFF Stat Comprehensive Metabolic Panel Stat Lipase Stat Magnesium Stat NT-proBNP (BNP-Adult 18+) Stat PTT Partial Thromboplastin Sanjiv Stat Prothrombin Time INR Stat TSH [Thyroid Stimulating Hormone] Stat Troponin & CK Cardiac Panel Stat Vital Signs Vital signs: Vital Signs - 8 hr 03/19/25 15:05 Temperature 98.2 F Pulse Rate 106 H Respiratory Rate 17 Blood Pressure 189/96 H Pulse Oximetry 94 Oxygen Delivery Method Room Air Medical Decision Making Lab Data 03/19/25 15:19 03/19/25 15:19 Labs: Lab Results 03/19/25 Range/Units 15:19 WBC 5.4 (4.5-11.0) X10^3/uL RBC 4.34 (4.0-5.2) X10^6/uL Hgb 14.4 (12.0-16.0) g/dL Hct 41.7 (36-46) % MCV 96.2 (80-100) fL MCH 33.2 (26-34) PG MCHC 34.5 (30-36) % RDW 12.7 (11.6-14.8) % Plt Count 281 (150-400) X10^3/uL Neut % (Auto) 61.0 (50-75) % Lymph % (Auto) 28.1 (25-40) % [place] % (Auto) 9.0 (3-14) % Eos % (Auto) 1.0 L (2-4) % Baso % (Auto) 0.9 (0-2) % Neut # (Auto) 3300 (0626-7937) /uL Lymph # (Auto) 1500 (8487-0047) /uL [place] # (Auto) 500 (0-900) /uL Eos # (Auto) 100 (0-450) /uL Baso # (Auto) 0 (0-100) /uL PT 11.6 (9.4-12.5) SECONDS INR 1.0 (0.9-1.3) APTT 34 (25.1-36.5) SECONDS Sodium 138 (137-145) mmol/L Potassium 4.0 (3.4-5.1) mmol/L Chloride 104 (98-107) mmol/L Carbon Dioxide 24 (22-32) mmol/L BUN 19 H (7-17) mg/dL Creatinine 0.73 (0.52-1.04) mg/dL Estimated GFR > 60 (>60) mL/min BUN/Creatinine Ratio 26.0 H (6-22) Glucose 102 H (70-99) mg/dL Calcium 9.8 (8.4-10.2) mg/dL Magnesium 1.9 (1.6-2.3) mg/dL Total Bilirubin 0.8 (0.2-1.3) mg/dL AST 42 H (14-36) IU/L ALT 24 (<35) IU/L Alkaline Phosphatase 62 (38-126) U/L Total Creatine Kinase 76 (30-135) U/L Troponin I < 0.012 (0.01-0.034) ng/mL NT-Pro-B Natriuret Pep 145 (<450) pg/mL Total Protein 7.7 (6.3-8.2) g/dL Albumin 4.7 (3.5-5.0) g/dL Globulin 3.0 (1.7-4.1) g/dL Albumin/Globulin Ratio 1.6 (1.0-2.8) Lipase 112 (23-300) U/L TSH 1.92 (0.47-4.68) uIU/mL Imaging Data Chest x-ray: Radiologist's Impression: [address] [address] XRay Report Signed Patient: Chantel Hus MR#: [id number] : 1945 Acct:[id number] Age/Sex: 79 / F Date of Service: 03/19/25 Loc: ED Accession Number: [id number] Procedure: XR chest 1V Ordering Provider: Ruiz Vo MD PROCEDURE: XR CHEST 1V INDICATIONS: chest pain TECHNIQUE: One view of the chest was acquired. COMPARISON: None. FINDINGS: Surgical changes and devices: None. Lungs and pleura: Mildly low lung volumes. No focal consolidation. No pleural effusions or pneumothorax. Mediastinum: Mediastinal contours appear normal. Heart size is normal. Bones and chest wall: No suspicious bony lesions. Overlying soft tissues appear unremarkable. IMPRESSION: No acute cardiopulmonary abnormality is seen. Approved by: Nash Hawley M.D. on 03/19/2025 at 16:26 [facility] Narrative Medical decision making narrative: Patient here with . Complains of palpitations and some shortness of breath today that has resolved. Patient was working outside today. She experienced no symptoms at the time. She went in and showered. Then she sat down to rest. She experience skipping beats every 3rd beat it seems like she said then fast heartbeat. Experienced no chest pain no syncope no fainting. No nausea no sweating. It has resolved. Of recently she has had palpitations while eating, as food passes down her throat. She did see a mold chipper in the past just a meet and Greet and to have a mold chipper but never had any heart problems or complaints or cardiac diagnosis. Patient sees primary care doctor Martín. Denies any recent illness. No recent changes in medications. Patient in no distress at this time. Is in normal sinus rhythm rate 95. After history and exam, CBC CMP magnesium troponin TSH EKG chest x-ray [facility] Medical records reviewed: No recent visit for this complaint Differential considered: Includes but not limited to AFib a flutter SVT PVC thyroid disease Lab Test results independently reviewed as above. Pertinent findings: WBC 5.4 hemoglobin 14.4 INR 1.0 sodium 138 potassium 4.0 BUN 19 creatinine 0.73 troponin less than 0.012 BNP 145 TSH 1.92 Independently reviewed EKG normal sinus rhythm rate 95 Imaging studies independently reviewed: Chest x-ray no acute finding Consultations: None indicated at this time Re-evaluations: 5:00 p.m.. Updated patient results. They are reassuring. Blood pressure has improved without intervention. Blood pressure at time of discharge 178/79. Patient states her family doctor is aware and they are working on possibly starting her on blood pressure medication. She will follow up next week with her family doctor regarding this as well. Return precautions reviewed. Patient asymptomatic. Patient desires discharge home. She will keep a journal of her palpitations and follow up with her family doctor for Holter monitoring or Zio patch. Discussion: Appropriate for discharge home. Patient asymptomatic during course of stay. Return precautions reviewed. Exam and laboratory studies are reassuring. She desires discharge home. Diagnosis: Palpitations. Discharge Plan Departure Patient Disposition: Home Clinical Impression: Palpitations Instructions: DI for Arrhythmias Activity Restrictions/Additional Instructions: Your exam and laboratory studies are reassuring at this time. Please see your family doctor next week and to scheduled for Holter monitor or Zio patch. Please reduce your caffeine use to avoid triggering palpitations. Return if worse if any questions or concerns. No new prescriptions are indicated at this time. Prescriptions: No Action fluticasone propionate [Flonase Allergy Relief] 50 mcg/actuation spray,suspension 1 spray NASAL DAILY PRN (Reason: Allergy Symptoms) fluconazole 150 mg tablet 150 mg PO Q3D 0 Days Qty: 2 0RF Rx Instructions: One tablet today, next tablet in 3 days gabapentin 300 mg capsule 600 mg PO DAILY Qty: 180 1RF Rx Instructions: take 2 capsules by mouth every morning cyclobenzaprine 10 mg tablet 10 mg PO BEDTIME PRN (Reason: Spasms) Qty: 60 1RF pravastatin 40 mg tablet 40 mg PO DAILY Qty: 90 3RF Rx Instructions: take 1 tablet by mouth at bedtime Metamucil 3.4 gram/5.4 gram powder 1 tbsp PO BID Rx Instructions: mix into at least 8 oz of water or juice before administering Calcium 500/ D 1000 1 tab PO DAILY Women's Multivitamin 1 tab PO DAILY acetaminophen 325 mg Tablet 650 mg PO Q6H PRN (Reason: Fever/Mild Pain (1-3)) Qty: 250 0RF ibuprofen 600 mg Tablet 600 mg PO Q6HR PRN (Reason: Fever/Mild Pain (1-3)) Qty: 250 0RF Referrals: Charles Resendiz, [Primary Care Provider] - Stand Alone Forms: Patient Portal/API/Survey
[2025-03-19 15:28] LABS: Add Manual Diff / Slide Review NO; Basophils Absolute Auto 0 /uL (0-100); Basophils Percent Auto 0.9 % (0-2); Eosinophils Absolute Auto 100 /uL (0-450); Hematocrit 41.7 % (36-46); Hemoglobin 14.4 g/dL (12.0-16.0); Lymphocytes Absolute Auto 1500 /uL (1100-4500); Lymphocytes Percent Auto 28.1 % (25-40); Mean Corpuscular HGB Conc 34.5 % (30-36); Mean Corpuscular Hemoglobin 33.2 PG (26-34); Mean Corpuscular Volume 96.2 fL (80-100); Monocytes Absolute Auto 500 /uL (0-900); Neutrophils Absolute Auto 3300 /uL (1500-7000); Platelet Count 281 X10^3/uL (150-400); Red Blood Cell Count 4.34 X10^6/uL (4.0-5.2); Red Cell Distribution Width 12.7 % (11.6-14.8); White Blood Cell Count 5.4 X10^3/uL (4.5-11.0)
[2025-03-19 15:33] LABS: Prothrombin Time 11.6 SECONDS (9.4-12.5)
[2025-03-19 15:36] LABS: PTT Partial Thromboplastin Tim 34 SECONDS (25.1-36.5)
[2025-03-19 15:40] LABS: Alanine Aminotransferase 24 IU/L (<35); Albumin 4.7 g/dL (3.5-5.0); Albumin Globulin Ratio 1.6 (1.0-2.8); Alkaline Phosphatase 62 U/L (38-126); Aspartate Aminotransferase 42 IU/L (14-36); Bilirubin Total 0.8 mg/dL (0.2-1.3); Blood Urea Nitrogen 19 mg/dL (7-17); Calcium 9.8 mg/dL (8.4-10.2); Carbon Dioxide 24 mmol/L (22-32); Chloride 104 mmol/L (98-107); Creatine Kinase 76 U/L (30-135); Estimated Glomerular Filt Rate > 60 mL/min (>60); Glucose 102 mg/dL (70-99); HEMOLYSIS 24 (0-50); Lipase 112 U/L (23-300); Magnesium 1.9 mg/dL (1.6-2.3); Sodium 138 mmol/L (137-145); Total Protein 7.7 g/dL (6.3-8.2)
[2025-03-19 15:51] LABS: NT-proBNP (BNP-Adult 18+) 145 pg/mL (<450); Troponin I < 0.012 ng/mL (0.01-0.034)
[2025-03-19 16:20] LABS: Thyroid Stimulating Hormone 1.92 uIU/mL (0.47-4.68)
== END 2025-03-19 17:23 | disposition home or self-care (01) ==
PROVIDERS: Emergency Provider Emergency Medicine; PCP Family Medicine
DX: R00.2 Palpitations (principal); R06.02 Shortness of breath; R07.9 Chest pain, unspecified
CPT/HCPCS: 36415; 71045; 80053; 82550; 83690; 83735; 83880; 84443; 84484; 85025; 85610; 85730; 93005; 93010; 99283; 99284

== ENCOUNTER → 2025-05-07 13:15 | Outpatient (CLI) | payer MEDICARE, OTHER, SELFPAY ==
[2025-05-07 13:51] LABS: Hematocrit 42.7 % (36-46); Hemoglobin 14.6 g/dL (12.0-16.0); Mean Corpuscular HGB Conc 34.2 % (30-36); Mean Corpuscular Hemoglobin 33.4 PG (26-34); Mean Corpuscular Volume 97.7 fL (80-100); Platelet Count 282 X10^3/uL (150-400); Red Blood Cell Count 4.37 X10^6/uL (4.0-5.2); Red Cell Distribution Width 12.8 % (11.6-14.8); White Blood Cell Count 5.7 X10^3/uL (4.5-11.0)
[2025-05-07 14:04] LABS: BUN Creatinine Ratio 20.5 (6-22); Blood Urea Nitrogen 16 mg/dL (7-17); Calcium 9.4 mg/dL (8.4-10.2); Carbon Dioxide 26 mmol/L (22-32); Chloride 104 mmol/L (98-107); Estimated Glomerular Filt Rate > 60 mL/min (>60); Glucose 93 mg/dL (70-99); HEMOLYSIS < 15 (0-50); Potassium 4.6 mmol/L (3.4-5.1); Sodium 138 mmol/L (137-145)
[2025-05-07 14:13] LABS: NT-proBNP (BNP-Adult 18+) 206 pg/mL (<450)
[2025-05-07 14:36] LABS: TSH w/ Reflex to FT4 1.91 uIU/mL (0.47-4.68)
== END ==
PROVIDERS: PCP Family Medicine; Referring Provider Internal Medicine; Visit Provider Internal Medicine
DX: R00.2 Palpitations (principal); R06.09 Other forms of dyspnea
CPT/HCPCS: 36415; 80048; 83880; 84443; 85027

== ENCOUNTER → 2025-10-02 14:00 | Outpatient (CLI) | payer MEDICARE, OTHER, SELFPAY ==
--- NOTE | 2025-10-02 14:02 | DI.MRI.S_ITS ---
PROCEDURE: MR LUMBAR SPINE WO CON
--- NOTE | 2025-10-02 14:02 | DI.MRI.S_ITS ---
PROCEDURE: MR CERVICAL SPINE WO CON
== END ==
LOC: MRI 14:01
PROVIDERS: PCP Family Medicine; Referring Provider Family Medicine; Visit Provider Family Medicine
DX: M43.02 Spondylolysis, cervical region (principal); M43.06 Spondylolysis, lumbar region
CPT/HCPCS: 72141; 72148

== ENCOUNTER → 2025-10-12 15:29 | Outpatient (CLI) | payer MEDICARE, OTHER, SELFPAY | PROVIDERS: Family Provider Family Medicine; PCP Family Medicine; Referring Provider Physical Medicine & Rehabilitation; Visit Provider Physical Medicine & Rehabilitation | DX: M25.519 Pain in unspecified shoulder (principal) | CPT/HCPCS: 36415; 85651; 86140 ==

== ENCOUNTER → 2025-10-14 14:34 | Outpatient (CLI) | payer MEDICARE, OTHER, SELFPAY ==
--- NOTE | 2025-10-14 14:35 | DI.MG.S_ITS ---
MM screening mammo BI: 10/14/2025. BI-RADS: 1 CLINICAL: 79-year old female for bilateral screening mammogram. Tyrer-Cuzick lifetime risk of 2.6%. No personal or first-degree family history of breast cancer. The patient had a prior right breast biopsy. PRIOR EXAMS 09/12/2024, 08/27/2023, 07/20/2022, 04/03/2021. MAMMOGRAPHY TECHNIQUE: 2D and 3D (tomosynthesis) digital mammographic views obtained, with additional images as needed for full coverage. Current study was also evaluated with a Computer Aided Detection (CAD) system. DENSITY B. There are scattered areas of fibroglandular density. MAMMOGRAPHY FINDINGS Bilateral: No suspicious mass, asymmetry, microcalcification, or other abnormality seen. IMPRESSION: * No evidence of malignancy. RECOMMENDATIONS Bilateral * Annual screening mammography. OVERALL ASSESSMENT CATEGORY BI-RADS-1: Negative. The [employer] recommends annual screening mammography beginning at age 40 for women with average risk of breast cancer. ELECTRONICALLY SIGNED: Emre Michaels M.D. on 10/15/2025 at 07:17:53 AM PT Interpreting Station ID: [id number]
== END ==
LOC: MAMMO 14:35
PROVIDERS: Family Provider Family Medicine; PCP Family Medicine; Referring Provider Family Medicine; Visit Provider Family Medicine
DX: Z12.31 Encounter for screening mammogram for malignant neoplasm of breast (principal)
CPT/HCPCS: 77063; 77067

== ENCOUNTER → 2025-10-27 14:44 | Outpatient (CLI) | payer MEDICARE, OTHER, SELFPAY ==
--- NOTE | 2025-10-27 14:47 | DI.RAD.S_ITS ---
PROCEDURE: XR SHOULDER RT MIN 3V INDICATIONS: acute on chronic pain TECHNIQUE: 3 views of the shoulder were acquired. COMPARISON: [facility], CR, XR SHOULDER RT MIN 2V, 10/03/2023, 12:46. FINDINGS: [id number] degenerative changes right acromioclavicular and glenohumeral joints with joint space narrowing and osteophytes, unchanged. No radiographic evidence of fracture, dislocation or high attenuation foreign body. IMPRESSION: Degenerative changes. If symptoms persist or worsen, or there is high clinical suspicion of right shoulder abnormality, MRI could be performed. Dictated by: Donaldo Cabrera M.D. on 10/27/2025 at 15:47 Approved by: Donaldo Cabrera M.D. on 10/27/2025 at 15:50
--- NOTE | 2025-10-27 14:47 | DI.RAD.S_ITS ---
PROCEDURE: XR HUMERUS RT 2V INDICATIONS: acute on chronic pain TECHNIQUE: AP and lateral views of the humerus were acquired. COMPARISON: [facility], CR, XR SHOULDER RT 2+ VIEWS, 10/27/2025, 14:50. FINDINGS: Bones: No fractures or dislocations. No suspicious bony lesions. Soft tissues: No suspicious soft tissue calcifications. IMPRESSION: No acute bony abnormality. Dictated by: Chrissie Salinas M.D. on 10/28/2025 at 9:20 Approved by: Chrissie Salinas M.D. on 10/28/2025 at 9:21
[2025-10-27 17:52] LABS: Vitamin D 25 Hydroxy (D3) 49.0 ng/mL (30.0-100.0)
[2025-10-27 18:26] LABS: Folate > 20.0 ng/mL (2.76-20.0); Vitamin B12 645 pg/mL (239-931)
== END ==
PROVIDERS: Family Provider Family Medicine; PCP Family Medicine; Referring Provider Family Medicine; Visit Provider Physician Assistant
DX: M25.511 Pain in right shoulder (principal); M79.601 Pain in right arm; M25.512 Pain in left shoulder; M81.0 Age-related osteoporosis without current pathological fracture; M79.18 Myalgia, other site
CPT/HCPCS: 36415; 73030; 73060; 82306; 82607; 82746